=== PATIENT | male | born 1950 | race African-American/Black ===

== ENCOUNTER 2019-12-19 10:17 | Inpatient (IN) | payer MEDICAID, MEDICARE ==
[2019-12-19 15:27] VITALS: BP 145/72
[2019-12-19] MEDS ORDERED: Acetaminophen 500 MG TAB PO PRN (15:32)
[2019-12-19] MEDS ORDERED: Maalox 30 mL Cup PO PRN (15:32)
[2019-12-19] MEDS ORDERED: Magnesium Hydroxide (MOM) 30 mL UDC PO PRN ×2 (15:32→16:48)
[2019-12-19] MEDS: Benztropine 1 MG TAB PO SCH (17:20)
[2019-12-20] MEDS: Benztropine 1 MG TAB PO SCH ×2 (08:38→16:15)
[2019-12-20] MEDS: Multivitamin Tab PO SCH (08:39)
[2019-12-20] MEDS ORDERED: Non-Formulary Item 1 EA (Multivitamin-Min/Iron/Fa/Vit K [Multi-Day Plus Minerals Tablet] 1 PO SCH (09:00)
[2019-12-20 10:06] LABS: CHOLESTEROL 203 mg/dL (<200); LDL CHOLESTEROL 110 mg/dL (0-129); TRIGLYCERIDES 51 mg/dL (30-150)
--- NOTE | 2019-12-20 13:09 | History and Physical ---
History of Present Illness - HPI Chief Complaint: 69 y/o male patient was brought into ER for evaluation due to Increased Agitation and Aggressive behavior. HPI: 69 y/o male patient was admitted to [facility] for evaluation due to Increased Agitation and Aggressive behavior. 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 Patient had an ER assessment and a workup was done. Patient will have a Psych consultation. I will follow, treat and monitor patient. Patient will continue current treatment plan as ordered. 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 GI: Report: No Pertinent Hx Psych: Report: Anxiety, Depression, Psychosis Musculoskeletal: Report: No Pertinent Hx Rheumatologic: Report: No pertinent Hx Renal/: Report: No Pertinent Hx Endocrine: Report: Diabetes Dermatology: Report: No Pertinent Hx - Past Surgical History Past Surgical History: No pertinent Hx Family Medical History - Family Member Niece History Unknown: Yes Ethnicity: Non- Living Status: Unknown Hx Family Cancer: No Hx Family Coronary Artery Disease: No Hx Family Congestive Heart Failure: No Hx Family Hypertension: No Hx Family Stroke: No Hx Family Diabetes: No Hx Family Seizures: No Hx Family Dementia: No Hx Family AIDS: No Hx Family HIV: No Hx Family COPD: No Hx Family Hepatitis: No Hx Family Psychiatric Problems: No Hx Family Tuberculosis: No Social History Smoke: No Alcohol: None Drugs: None Lives: Alone Domestic Violence: Negative Health Maintenance Health Maintenance: Other (Please see chart.) - Medications Home Medications: Home Medication Medication Instructions Recorded Type Amitriptyline HCl [Amitriptyline 25 mg PO BID 12/19/19 History HCl*] Benztropine [Cogentin*] 2 mg PO BID 12/19/19 History Divalproex Sodium [Depakote 750 mg PO HS 12/19/19 History Sprinkle] Lisinopril 5 mg PO DAILY 12/19/19 History Magnesium Hydroxide [Milk of 30 ml PO PRN PRN 12/19/19 History Magnesia] Multivitamin-Min/Iron/FA/Vit K 1 tab PO DAILY 12/19/19 History [Multi-Day Plus Minerals Tablet] OLANZapine [ZyPREXA] 5 mg PO DAILY 12/19/19 History OLANZapine [ZyPREXA] 15 mg PO HS 12/19/19 History OXcarbazepine [Trileptal] 600 mg PO BID 12/19/19 History amLODIPine Besylate [Norvasc*] 10 mg PO DAILY 12/19/19 History Other Medications: Please see medication reconciliation sheet. - Allergies Allergies/Adverse Reactions: Allergies Allergy/AdvReac Type Severity Reaction Status Date / Time No Known Allergies Allergy Unverified 12/19/19 15:26 Review of Systems - Review of Systems Review of Systems: Patient appears very agitated and frustrated. Constitutional: Report: No Significant Eyes: Report: No Significant ENT: Report: No Significant Respiratory: Report: Other (Hx of Copd.) Cardiovascular: Report: Other (Cardiac disorders.) Gastrointestinal: Report: No Significant Genitourinary: Report: No Significant Musculoskeletal: Report: No Significant Skin: Report: No Significant Neurological: Report: Confusion, Seizures, Other (Hx of Psychosis.) Physical Exam - Physical Exam HEENT: Report: Ears Nose Throat within normal limits Neck: Report: Within normal limits Cardiovascular Systems: Report: +s1/s2 noted, Regular, Rate and Rhythm Respiratory: Report: Breath Sounds are within normal limits Abdomen: Report: Non-tender to palpation Back: Report: Inspection of back is within normal limits. Extremities: Report: Non-tender to palpation. Skin: Report: Color of skin is within normal limits Neuro/Psych: Report: Depressed affect, Other (Very agitated and aggressive.) - Lab Results All Lab Results last 24 hours: Laboratory Results - last 24 hr 12/20/19 08:54 Triglycerides 51 Cholesterol 203 H LDL Cholesterol 110 HDL Cholesterol 74 - Assessment Assessment: Psychosis. Anxiety. Depression. History of Diabetes. History of Hypertension. History of Seizure disorder. History of COPD. History of Cardiac disease. - Plan Plan: Psych consult requested. Accu-check daily, Monitor vitals, labs. Continue present mes as directed. Monitor pain, pain management. Continue pulmonary support prn. Monitor Low sodium diet/nutritional support. Safety precaution/Fall precaution. Supportive care. Continue current treatment plan. Cranial Nerve Assessment - CRANIAL NERVES alcohol swab:: Yes Distinguishes movements in peripheral field.:: Yes up, down, sideways:: Yes on forehead, cheeks and chin, chews symmetrically:: Yes FACIAL VII: upper: Frowns Symmetrically:: Yes FACIAL VII: Lower: Smiles Symmetrically:: Yes both ears:: Yes GLOSS-PHARYNGEAL IX: Has gag reflex:: Yes VAGUS X: Can make guttural sounds:: Yes ACCESSORY XI: Shrugs shoulders symmetrically:: Yes tremors or fasciculation's:: Yes - MOTOR spasticity, cogwheel, atrophy, tremor, asterixis, other: Yes - COORDINATION Finger to nose, heel to sanchez, STEFANO, gait, Romberg: Yes - SENSORY signs, Brudzinski, Kernig, neck rigidity:: Yes - REFLEXES Brachioradials Right:: Yes Brachioradials Left:: Yes Biceps Right:: Yes Biceps Left:: Yes Triceps Right:: Yes Triceps Left:: Yes Knee Right:: Yes Knee Left:: Yes Ankle Right:: Yes Ankle Left:: Yes Babinski Right:: Yes Babinski Left:: Yes
--- NOTE | 2019-12-20 17:38 | Psychiatric Evaluation ---
DATE OF SERVICE: 12/20/2019 HISTORY OF PRESENT ILLNESS: A 77-year-old male coming from [facility] retirement, talking nonsense, striking out at staff, aggressive, apparently belligerent there. They could not control his behaviors, aggressive toward women, especially when I talked to him, he is mumbling. Unfortunately, I cannot understand pretty much anything he tells me. I am just able to identify that he knows his name. I don't know if he knows where he is or the year or the day. Difficult to interview. Discussed with the staff. Nursing notes were reviewed. They note that he did not sleep very well, rambling, talking to self, and pacing. PAST PSYCHIATRIC HISTORY: Unclear, concerns for schizophrenia, mood disorder, rule out dementia. FAMILY HISTORY: Unclear. SOCIAL HISTORY: Coming from a retirement facility. MEDICATIONS: Were noted including Zyprexa. MENTAL STATUS EXAMINATION: Stated age, mumbling. Awake, alert, seems disoriented. Unclear SI or HI, unclear psychotic symptoms. Poor insight, poor impulse control. DIAGNOSIS: Likely schizophrenia, mood, unspecified, concerns for dementia. MEDICAL: Please see full H and P. ESTIMATED LENGTH OF STAY: 7-10 days. ASSESSMENT: The patient requiring hospitalization, aggressive, agitated, unruly. TREATMENT PLAN: Includes group as well as milieu therapy, adjustment of medication. CONDITIONS FOR DISCHARGE: Improved mood, improved affect, better control of any agitation. JOB# [id number]
[2019-12-21 06:06] LABS: A1C 5.4 % (4.8-5.6)
[2019-12-21] MEDS: Multivitamin Tab PO SCH (08:33)
[2019-12-21] MEDS: Benztropine 1 MG TAB PO SCH ×2 (08:33→16:07)
--- NOTE | 2019-12-21 10:21 | Internal Medicine Prog Note ---
Internal Medicine Subjective - Subjective Service Date: 12/21/19 Patient seen and examined:: chart reviewed Patient is:: awake, verbal, non-interactive, agitated Patient Complaints of:: other (very agitated and aggressive behavior.) Per staff patient has:: no adverse event, agitated, combative Internal Medicine Objective - Results Recent Labs: Laboratory Last Values Triglycerides 51 mg/dL (30-150) 12/20/19 08:54 Cholesterol 203 mg/dL (<200) H 12/20/19 08:54 LDL Cholesterol 110 mg/dL (0-129) 12/20/19 08:54 HDL Cholesterol 74 mg/dL (>45) 12/20/19 08:54 - Physical Exam Vitals and I&O: Vital Signs Temp 98.9 F 12/20/19 20:00 Pulse 70 12/20/19 20:00 Resp 20 12/20/19 20:00 BP 133/71 12/20/19 20:00 Pulse Ox 97 12/20/19 20:00 Intake & Output 12/20/19 12/21/19 12/21/19 18:59 06:59 18:59 Intake Total 1200 120 Balance 1200 120 Intake: Oral 1200 120 Other: # Voids 3 # Bowel Movements 1 Stool Characteristics Soft Soft Soft Formed Formed Formed Brown Brown Brown Active Medications: Current Medications Acetaminophen (Tylenol) 650 mg PO Q4H PRN PRN Reason: Pain (Mild 1-3) Stop: 02/17/20 15:31 Acetaminophen (Tylenol Extra Strength) 1,000 mg PO Q6H PRN PRN Reason: Pain (Moderate 4-6) Stop: 02/17/20 15:31 Al Hydrox/Mg Hydrox/Simethicone (Maalox) 30 ml PO Q4HR PRN PRN Reason: GI DISTRESS Stop: 02/17/20 15:31 Amitriptyline HCl (Elavil) 25 mg PO BID [facility]; Protocol Stop: 02/17/20 16:59 Last Admin: 12/21/19 08:33 Dose: 25 mg Amlodipine Besylate (Norvasc) 10 mg PO DAILY [facility] Stop: 02/18/20 08:59 Last Admin: 12/21/19 08:35 Dose: Not Given Benztropine Mesylate (Cogentin) 2 mg PO BID [facility] Stop: 02/17/20 16:59 Last Admin: 12/21/19 08:33 Dose: 2 mg Divalproex Sodium (Depakote Sprinkle) 750 mg PO HS [facility]; Protocol Stop: 02/17/20 20:59 Last Admin: 12/20/19 21:17 Dose: 750 mg Ibuprofen (Motrin) 400 mg PO Q4H PRN PRN Reason: Pain (Severe 7-10) Stop: 02/17/20 15:31 Lisinopril (Zestril) 5 mg PO DAILY [facility] Stop: 02/18/20 08:59 Last Admin: 12/21/19 08:35 Dose: Not Given Lorazepam (Ativan) 0.5 mg PO Q4HR PRN; Protocol PRN Reason: Anxiety Stop: 01/18/20 15:31 Magnesium Hydroxide (Milk Of Magnesia) 30 ml PO HS PRN PRN Reason: Constipation Multivitamins/Vitamin C (Theragran) 1 tab PO DAILY [facility] Stop: 02/18/20 08:59 Last Admin: 12/21/19 08:33 Dose: 1 tab Olanzapine (Zyprexa) 5 mg PO DAILY [facility]; Protocol Stop: 02/18/20 13:59 Last Admin: 12/21/19 08:33 Dose: 5 mg Olanzapine (Zyprexa) 15 mg PO HS [facility]; Protocol Stop: 02/17/20 20:59 Last Admin: 12/20/19 21:18 Dose: 15 mg Oxcarbazepine (Trileptal) 600 mg PO BID [facility]; Protocol Stop: 02/17/20 16:59 Last Admin: 12/21/19 08:33 Dose: 600 mg Physical Exam: Patient continues to be very irritable, easily frustrated, will monitor closely. General: other (Dis-oriented and in agitated mood.) HEENT: NC/AT, PERRLA Neck: Supple, No JVD Lungs: CTAB Cardiovascular: RRR, Normal S1 Abdomen: soft, non-tender, non-distended Extremities: clear Neurological: no change, disorganized Internal Medicine Assmt/Plan - Assessment Assessment: Schizophrenia, R/O Dementia. Psychosis. Anxiety. Depression. History of Diabetes. History of Hypertension. History of Seizure disorder. History of COPD. History of Cardiac disease. - Plan Plan: Continuation of care. Accu-check daily, Monitor vitals, labs. Continue present mes as directed. Monitor pain, pain management. Continue pulmonary support prn. Monitor Low sodium diet/nutritional support. Safety precaution/Fall precaution. Supportive care. Continue present care management. Nutritional Asmnt/Malnutr-PDOC - Dietary Evaluation Malnutrition Findings (Please click <Entered> for more info): see chart.
--- NOTE | 2019-12-21 16:33 | Progress Notes ---
DATE: 12/21/2019 SUBJECTIVE: A 69-year-old male remains confused, mumbles, really hard to understand what he is saying. Per staff, AO x 1. On my exam, AO x 1, not really answering any questions here, but due to combative behaviors, still wandering, confused, gets agitated, preoccupied with his own thoughts, concerns about the safety of those around him. Concerns he may act out upon his impulses. Still rambles. Medications were reviewed. Labs reviewed. Vitals were reviewed. ASSESSMENT: A 69-year-old male who remains symptomatic, concerns he may strike out at others. PLAN: We will continue to monitor. We will make appropriate medication adjustments. JOB# [id number]
[2019-12-22] MEDS: Benztropine 1 MG TAB PO SCH ×2 (08:54→17:31)
[2019-12-22] MEDS: Multivitamin Tab PO SCH (08:55)
--- NOTE | 2019-12-22 13:01 | Internal Medicine Prog Note ---
Internal Medicine Subjective - Subjective Service Date: 12/22/19 Patient seen and examined:: with staff, chart reviewed Patient is:: awake, verbal, non-interactive, agitated Patient Complaints of:: other (very agitated and aggressive behavior.) Per staff patient has:: no adverse event, no episodes of fall, agitated, combative Internal Medicine Objective - Results Recent Labs: Laboratory Last Values Triglycerides 51 mg/dL (30-150) 12/20/19 08:54 Cholesterol 203 mg/dL (<200) H 12/20/19 08:54 LDL Cholesterol 110 mg/dL (0-129) 12/20/19 08:54 HDL Cholesterol 74 mg/dL (>45) 12/20/19 08:54 - Physical Exam Vitals and I&O: Vital Signs Temp 98.2 F 12/22/19 05:39 Pulse 82 12/22/19 05:39 Resp 16 12/22/19 08:00 BP 114/68 12/22/19 05:39 Pulse Ox 96 12/22/19 05:39 Intake & Output 12/21/19 12/22/19 12/22/19 18:59 06:59 18:59 Intake Total 1200 240 Balance 1200 240 Intake: Oral 1200 240 Other: # Voids 4 2 # Bowel Movements 1 Stool Characteristics Soft Soft Soft Formed Formed Formed Brown Brown Brown Active Medications: Current Medications Acetaminophen (Tylenol) 650 mg PO Q4H PRN PRN Reason: Pain (Mild 1-3) Stop: 02/17/20 15:31 Acetaminophen (Tylenol Extra Strength) 1,000 mg PO Q6H PRN PRN Reason: Pain (Moderate 4-6) Stop: 02/17/20 15:31 Al Hydrox/Mg Hydrox/Simethicone (Maalox) 30 ml PO Q4HR PRN PRN Reason: GI DISTRESS Stop: 02/17/20 15:31 Amitriptyline HCl (Elavil) 25 mg PO BID [facility]; Protocol Stop: 02/17/20 16:59 Last Admin: 12/22/19 08:55 Dose: 25 mg Amlodipine Besylate (Norvasc) 10 mg PO DAILY [facility] Stop: 02/18/20 08:59 Last Admin: 12/22/19 10:03 Dose: Not Given Benztropine Mesylate (Cogentin) 2 mg PO BID [facility] Stop: 02/17/20 16:59 Last Admin: 12/22/19 08:54 Dose: 2 mg Divalproex Sodium (Depakote Sprinkle) 750 mg PO HS [facility]; Protocol Stop: 02/17/20 20:59 Last Admin: 12/21/19 20:44 Dose: 750 mg Ibuprofen (Motrin) 400 mg PO Q4H PRN PRN Reason: Pain (Severe 7-10) Stop: 02/17/20 15:31 Lisinopril (Zestril) 5 mg PO DAILY [facility] Stop: 02/18/20 08:59 Last Admin: 12/22/19 10:03 Dose: Not Given Lorazepam (Ativan) 0.5 mg PO Q4HR PRN; Protocol PRN Reason: Anxiety Stop: 01/18/20 15:31 Magnesium Hydroxide (Milk Of Magnesia) 30 ml PO HS PRN PRN Reason: Constipation Multivitamins/Vitamin C (Theragran) 1 tab PO DAILY [facility] Stop: 02/18/20 08:59 Last Admin: 12/22/19 08:55 Dose: 1 tab Olanzapine (Zyprexa) 5 mg PO DAILY [facility]; Protocol Stop: 02/18/20 13:59 Last Admin: 12/22/19 08:54 Dose: 5 mg Olanzapine (Zyprexa) 15 mg PO HS [facility]; Protocol Stop: 02/17/20 20:59 Last Admin: 12/21/19 20:44 Dose: 15 mg Oxcarbazepine (Trileptal) 600 mg PO BID [facility]; Protocol Stop: 02/17/20 16:59 Last Admin: 12/22/19 08:55 Dose: 600 mg Physical Exam: Patient continues to be easily frustrated and is withdrawn, will be monitored closely. General: other (Dis-oriented and in agitated mood.) HEENT: NC/AT, PERRLA Neck: Supple, No JVD Lungs: CTAB Cardiovascular: RRR, Normal S1 Abdomen: soft, non-tender, non-distended Extremities: clear Neurological: no change, disorganized Internal Medicine Assmt/Plan - Assessment Assessment: Schizophrenia, R/O Dementia. Psychosis. Anxiety. Depression. History of Diabetes. History of Hypertension. History of Seizure disorder. History of COPD. History of Cardiac disease. - Plan Plan: Continuation of care. Accu-check daily, Monitor vitals, labs. Continue present mes as directed. Monitor pain, pain management. Continue pulmonary support prn. Monitor Low sodium diet/nutritional support. Safety precaution/Fall precaution. Supportive care. Continue present care management. Nutritional Asmnt/Malnutr-PDOC - Dietary Evaluation Malnutrition Findings (Please click <Entered> for more info): see chart.
--- NOTE | 2019-12-22 19:52 | Progress Notes ---
DATE: 12/22/2019 Case was discussed with staff of the patient, reviewed records. Covering for Dr. Lo. This is a 69-year-old male who was admitted on 12/19/2019 from [facility]. He was making nonsense, striking out at staff, aggressive, belligerent, could not control his behavior, especially towards women. The patient is mumbling, unable to participate in meaningful conversation. I tried talk to him, he was still mumbling, unable to make safe plan for self-care, refusing care, refusing to sign voluntary, so I had to extend the hold because of aggressive behavior, unable to make safe plan for self-care, unpredictable, impulsive. He is on Depakote and Cogentin as well as olanzapine. No side effects with the medication, no sedation, no nausea, no extrapyramidal symptoms. We will continue outpatient group therapy, milieu therapy, adjust medication as needed. JOB# [id number]
--- NOTE | 2019-12-23 07:54 | Internal Medicine Prog Note ---
Internal Medicine Subjective - Subjective Service Date: 12/23/19 Patient seen and examined:: without staff, chart reviewed Patient is:: awake, verbal, non-interactive, agitated Patient Complaints of:: other (very agitated and aggressive behavior.) Per staff patient has:: no adverse event, no episodes of fall, agitated, combative Internal Medicine Objective - Results Recent Labs: Laboratory Last Values Triglycerides 51 mg/dL (30-150) 12/20/19 08:54 Cholesterol 203 mg/dL (<200) H 12/20/19 08:54 LDL Cholesterol 110 mg/dL (0-129) 12/20/19 08:54 HDL Cholesterol 74 mg/dL (>45) 12/20/19 08:54 - Physical Exam Vitals and I&O: Vital Signs Temp 98.4 F 12/22/19 14:00 Pulse 81 12/22/19 14:00 Resp 19 12/22/19 14:00 BP 101/55 12/22/19 14:00 Pulse Ox 97 12/22/19 14:00 Intake & Output 12/22/19 12/23/19 12/23/19 18:59 06:59 18:59 Intake Total 1300 Balance 1300 Intake: Oral 1300 Other: # Voids 3 # Bowel Movements 0 Stool Characteristics Soft Soft Formed Formed Brown Brown Active Medications: Current Medications Acetaminophen (Tylenol) 650 mg PO Q4H PRN PRN Reason: Pain (Mild 1-3) Stop: 02/17/20 15:31 Acetaminophen (Tylenol Extra Strength) 1,000 mg PO Q6H PRN PRN Reason: Pain (Moderate 4-6) Stop: 02/17/20 15:31 Al Hydrox/Mg Hydrox/Simethicone (Maalox) 30 ml PO Q4HR PRN PRN Reason: GI DISTRESS Stop: 02/17/20 15:31 Amitriptyline HCl (Elavil) 25 mg PO BID [facility]; Protocol Stop: 02/17/20 16:59 Last Admin: 12/22/19 17:31 Dose: 25 mg Amlodipine Besylate (Norvasc) 10 mg PO DAILY [facility] Stop: 02/18/20 08:59 Last Admin: 12/22/19 10:03 Dose: Not Given Benztropine Mesylate (Cogentin) 2 mg PO BID [facility] Stop: 02/17/20 16:59 Last Admin: 12/22/19 17:31 Dose: 2 mg Divalproex Sodium (Depakote Sprinkle) 750 mg PO HS [facility]; Protocol Stop: 02/17/20 20:59 Last Admin: 12/22/19 20:40 Dose: 750 mg Ibuprofen (Motrin) 400 mg PO Q4H PRN PRN Reason: Pain (Severe 7-10) Stop: 02/17/20 15:31 Lisinopril (Zestril) 5 mg PO DAILY [facility] Stop: 02/18/20 08:59 Last Admin: 12/22/19 10:03 Dose: Not Given Lorazepam (Ativan) 0.5 mg PO Q4HR PRN; Protocol PRN Reason: Anxiety Stop: 01/18/20 15:31 Magnesium Hydroxide (Milk Of Magnesia) 30 ml PO HS PRN PRN Reason: Constipation Multivitamins/Vitamin C (Theragran) 1 tab PO DAILY [facility] Stop: 02/18/20 08:59 Last Admin: 12/22/19 08:55 Dose: 1 tab Olanzapine (Zyprexa) 5 mg PO DAILY [facility]; Protocol Stop: 02/18/20 13:59 Last Admin: 12/22/19 08:54 Dose: 5 mg Olanzapine (Zyprexa) 15 mg PO HS [facility]; Protocol Stop: 02/17/20 20:59 Last Admin: 12/22/19 20:40 Dose: 15 mg Oxcarbazepine (Trileptal) 600 mg PO BID [facility]; Protocol Stop: 02/17/20 16:59 Last Admin: 12/22/19 17:31 Dose: 600 mg General: alert, other (Dis-oriented and in agitated mood.) HEENT: NC/AT, PERRLA Neck: Supple, No JVD Lungs: CTAB Cardiovascular: RRR, Normal S1 Abdomen: soft, non-tender, non-distended Extremities: clear Neurological: no change, disorganized Internal Medicine Assmt/Plan - Assessment Assessment: schizophrenia hypertension chronic obstructive pulmonary disease history of seizure - Plan Plan: follow up with psychiatrist monitor behavior fall precaution
[2019-12-23] MEDS: Benztropine 1 MG TAB PO SCH ×2 (09:18→17:25)
[2019-12-23] MEDS: Multivitamin Tab PO SCH (09:19)
--- NOTE | 2019-12-23 12:18 | Internal Medicine Prog Note ---
Internal Medicine Subjective - Subjective Service Date: 12/23/19 Patient seen and examined:: with staff, chart reviewed Patient is:: awake, verbal, non-interactive, agitated Patient Complaints of:: other (very agitated and aggressive behavior.) Per staff patient has:: no adverse event, no episodes of fall, agitated, combative Internal Medicine Objective - Results Recent Labs: Laboratory Last Values Triglycerides 51 mg/dL (30-150) 12/20/19 08:54 Cholesterol 203 mg/dL (<200) H 12/20/19 08:54 LDL Cholesterol 110 mg/dL (0-129) 12/20/19 08:54 HDL Cholesterol 74 mg/dL (>45) 12/20/19 08:54 - Physical Exam Vitals and I&O: Vital Signs Temp 98.4 F 12/22/19 14:00 Pulse 81 12/22/19 14:00 Resp 16 12/23/19 08:00 BP 101/55 12/22/19 14:00 Pulse Ox 97 12/22/19 14:00 Intake & Output 12/22/19 12/23/19 12/23/19 18:59 06:59 18:59 Intake Total 1300 Balance 1300 Intake: Oral 1300 Other: # Voids 3 # Bowel Movements 0 Stool Characteristics Soft Soft Soft Formed Formed Formed Brown Brown Brown Active Medications: Current Medications Acetaminophen (Tylenol) 650 mg PO Q4H PRN PRN Reason: Pain (Mild 1-3) Stop: 02/17/20 15:31 Acetaminophen (Tylenol Extra Strength) 1,000 mg PO Q6H PRN PRN Reason: Pain (Moderate 4-6) Stop: 02/17/20 15:31 Al Hydrox/Mg Hydrox/Simethicone (Maalox) 30 ml PO Q4HR PRN PRN Reason: GI DISTRESS Stop: 02/17/20 15:31 Amitriptyline HCl (Elavil) 25 mg PO BID [facility]; Protocol Stop: 02/17/20 16:59 Last Admin: 12/23/19 09:19 Dose: 25 mg Amlodipine Besylate (Norvasc) 10 mg PO DAILY [facility] Stop: 02/18/20 08:59 Last Admin: 12/23/19 09:19 Dose: Not Given Benztropine Mesylate (Cogentin) 2 mg PO BID [facility] Stop: 02/17/20 16:59 Last Admin: 12/23/19 09:18 Dose: 2 mg Divalproex Sodium (Depakote Sprinkle) 750 mg PO HS [facility]; Protocol Stop: 02/17/20 20:59 Last Admin: 12/22/19 20:40 Dose: 750 mg Ibuprofen (Motrin) 400 mg PO Q4H PRN PRN Reason: Pain (Severe 7-10) Stop: 02/17/20 15:31 Lisinopril (Zestril) 5 mg PO DAILY [facility] Stop: 02/18/20 08:59 Last Admin: 12/23/19 09:19 Dose: Not Given Lorazepam (Ativan) 0.5 mg PO Q4HR PRN; Protocol PRN Reason: Anxiety Stop: 01/18/20 15:31 Magnesium Hydroxide (Milk Of Magnesia) 30 ml PO HS PRN PRN Reason: Constipation Multivitamins/Vitamin C (Theragran) 1 tab PO DAILY [facility] Stop: 02/18/20 08:59 Last Admin: 12/23/19 09:19 Dose: 1 tab Olanzapine (Zyprexa) 5 mg PO DAILY [facility]; Protocol Stop: 02/18/20 13:59 Last Admin: 12/23/19 09:18 Dose: 5 mg Olanzapine (Zyprexa) 15 mg PO HS [facility]; Protocol Stop: 02/17/20 20:59 Last Admin: 12/22/19 20:40 Dose: 15 mg Oxcarbazepine (Trileptal) 600 mg PO BID [facility]; Protocol Stop: 02/17/20 16:59 Last Admin: 12/23/19 09:18 Dose: 600 mg Physical Exam: Patient continues to be combative, agitated and irritable, will continue to be monitored. General: alert, other (Dis-oriented and in agitated mood.) HEENT: NC/AT, PERRLA Neck: Supple, No JVD Lungs: CTAB Cardiovascular: RRR, Normal S1 Abdomen: soft, non-tender, non-distended Extremities: clear Neurological: no change, disorganized Internal Medicine Assmt/Plan - Assessment Assessment: Psychosis. Anxiety. Depression. History of Diabetes. History of Hypertension. History of Seizure disorder. History of COPD. History of Cardiac disease. - Plan Plan: Accu-check daily, Monitor vitals, labs. Continue present mes as directed. Monitor pain, pain management. Continue pulmonary support prn. Monitor Low sodium diet/nutritional support. Safety precaution/Fall precaution. Supportive care. Continue present care management. Nutritional Asmnt/Malnutr-PDOC - Dietary Evaluation Malnutrition Findings (Please click <Entered> for more info): Nutritional Asmnt/Malnutrition Start: 12/23/19 11: 33 Text: Status: Active Freq: Protocol: Document 12/23/19 11:49 DONNACAROLINELEIF (Rec: 12/23/19 12:08 MMULLEIF VESNA- [id number]) Nutritional Asmnt/Malnutrition Patient General Information Nutritional Screening Moderate Risk Diagnosis Psychosis Pertinent Medical Hx/Surgical Hx Cardiac disease, diabetes, hypertension, COPD< seizure disorder, depression, anxiety Subjective Information Dietary currently providing average 1900 kcal, 80 gm protein per day; intake ~100% of meals. Per nursing notes, patient selectively mute. Current Diet Order/ Nutrition Support Cardiac Patient / S.O Not Indicated Pertinent Medications Maalox, MOM, Theragran Pertinent Labs (12/19) Cholesterol 203 Nutritional Hx/Data Height 1.7 m Height (Calculated Centimeters) 170.2 Current Weight (lbs) 68.039 kg Weight (Calculated Kilograms) 68.0 Weight (Calculated Grams) 07441.9 [place] Body Weight 148 % [place] Body Weight 101 Body Mass Index (BMI) 23.5 Recent Weight Change No Weight Status Approriate GI Symptoms GI Symptoms None Last BM 12/20 x 1 Difficult in: None Food Allergies No Cultural/Ethnic/Gnosticism Belief none indicated Usual diet at home unknown Skin Integrity/Comment: Zac 19, dryness Current %PO Good (75-100%) Estimated Nutritional Goals BEE in Kcals: Using Current wt Calories/Kcals/Kg 25-30 kcal/kg using CBW68.1kg Kcals Calculated ~7935-5138 kcal/day Protein: Using Current wt Protein g/kgm/kg Protein Calculated ~70 gm/day Fluid: ml ~9211-8924 ml/day 1 ml/kcal Nutritional Problem No current Nutrition Prob Problem No nutrition diagnosis at this time Intervention/Recommendation Comments 1. Continue cardiac diet as tolerated by patient ( Cholesterol 203) Expected Outcomes/Goals Expected Outcomes/Goals Oral intake >75% of meals, weight stable, nutrition related labs WNL F/U LR 12/29-
--- NOTE | 2019-12-23 21:32 | Progress Notes ---
DATE: 12/23/[address] oL. Brought in here for striking out at staff and aggressive behavior. CURRENT MEDICATIONS: Benztropine 2 b.i.d., Depakote 750 at bedtime, Ativan as needed, olanzapine 15 at nighttime, 5 in the morning and Trileptal 600 b.i.d. Today on [id number] evaluation, refuses to be interviewed, starts cursing, belligerence, disorganized. ASSESSMENT AND PLAN: Schizophrenic who continues to present psychotic, irritable and agitated upon approach. We will continue with current medications to continue to reach steady state. JOB# [id number]
[2019-12-24] MEDS: Benztropine 1 MG TAB PO SCH ×2 (08:50→17:06)
[2019-12-24] MEDS: Multivitamin Tab PO SCH (08:51)
--- NOTE | 2019-12-24 14:12 | Progress Notes ---
DATE: 12/24/2019 SUBJECTIVE: Today on [id number] evaluation, the patient is noted to be standing on the floor, talking to the floor, when interrupted became very agitated. MENTAL STATUS EXAMINATION: Internally preoccupied, despondent. ASSESSMENT AND PLAN: Schizophrenia, who continues to respond ____ and becomes agitated upon approach. He is currently on ____. JOB# [id number]
--- NOTE | 2019-12-24 20:49 | Internal Medicine Prog Note ---
Internal Medicine Subjective - Subjective Patient is:: awake, verbal, non-interactive, in wheelchair, agitated Patient Complaints of:: other (very agitated and aggressive behavior.) Per staff patient has:: no adverse event, no episodes of fall, agitated, combative Internal Medicine Objective - Results Recent Labs: Laboratory Last Values Triglycerides 51 mg/dL (30-150) 12/20/19 08:54 Cholesterol 203 mg/dL (<200) H 12/20/19 08:54 LDL Cholesterol 110 mg/dL (0-129) 12/20/19 08:54 HDL Cholesterol 74 mg/dL (>45) 12/20/19 08:54 - Physical Exam Vitals and I&O: Vital Signs Temp 97.9 F 12/24/19 20:00 Pulse 65 12/24/19 20:00 Resp 18 12/24/19 20:00 BP 125/62 12/24/19 20:00 Pulse Ox 97 12/24/19 20:00 Intake & Output 12/24/19 12/24/19 12/25/19 06:59 18:59 06:59 Intake Total 120 800 Balance 120 800 Intake: Oral 120 800 Other: # Voids 1 3 # Bowel Movements 0 0 Stool Characteristics Soft Formed Brown Active Medications: Current Medications Acetaminophen (Tylenol) 650 mg PO Q4H PRN PRN Reason: Pain (Mild 1-3) Stop: 02/17/20 15:31 Acetaminophen (Tylenol Extra Strength) 1,000 mg PO Q6H PRN PRN Reason: Pain (Moderate 4-6) Stop: 02/17/20 15:31 Al Hydrox/Mg Hydrox/Simethicone (Maalox) 30 ml PO Q4HR PRN PRN Reason: GI DISTRESS Stop: 02/17/20 15:31 Amitriptyline HCl (Elavil) 25 mg PO BID [facility]; Protocol Stop: 02/17/20 16:59 Last Admin: 12/24/19 17:06 Dose: 25 mg Amlodipine Besylate (Norvasc) 10 mg PO DAILY [facility] Stop: 02/18/20 08:59 Last Admin: 12/24/19 08:50 Dose: Not Given Benztropine Mesylate (Cogentin) 2 mg PO BID [facility] Stop: 02/17/20 16:59 Last Admin: 12/24/19 17:06 Dose: 2 mg Divalproex Sodium (Depakote Sprinkle) 750 mg PO HS [facility]; Protocol Stop: 02/17/20 20:59 Last Admin: 12/24/19 20:45 Dose: 750 mg Ibuprofen (Motrin) 400 mg PO Q4H PRN PRN Reason: Pain (Severe 7-10) Stop: 02/17/20 15:31 Lisinopril (Zestril) 5 mg PO DAILY [facility] Stop: 02/18/20 08:59 Last Admin: 12/24/19 08:51 Dose: Not Given Lorazepam (Ativan) 0.5 mg PO Q4HR PRN; Protocol PRN Reason: Anxiety Stop: 01/18/20 15:31 Last Admin: 12/24/19 09:42 Dose: 0.5 mg Magnesium Hydroxide (Milk Of Magnesia) 30 ml PO HS PRN PRN Reason: Constipation Multivitamins/Vitamin C (Theragran) 1 tab PO DAILY [facility] Stop: 02/18/20 08:59 Last Admin: 12/24/19 08:51 Dose: 1 tab Olanzapine (Zyprexa) 5 mg PO DAILY [facility]; Protocol Stop: 02/18/20 13:59 Last Admin: 12/24/19 08:51 Dose: 5 mg Olanzapine (Zyprexa) 15 mg PO HS [facility]; Protocol Stop: 02/17/20 20:59 Last Admin: 12/24/19 20:45 Dose: 15 mg Oxcarbazepine (Trileptal) 600 mg PO BID [facility]; Protocol Stop: 02/17/20 16:59 Last Admin: 12/24/19 17:06 Dose: 600 mg General: alert, other (Dis-oriented and in agitated mood.) HEENT: NC/AT, PERRLA Neck: Supple, No JVD Lungs: CTAB Cardiovascular: RRR, Normal S1 Abdomen: soft, non-tender, non-distended Extremities: clear Neurological: no change, disorganized Internal Medicine Assmt/Plan - Assessment Assessment: Psychosis. Anxiety. Depression. History of Diabetes. History of Hypertension. History of Seizure disorder. History of COPD. History of Cardiac disease. - Plan Plan: Accu-check daily, Monitor vitals, labs. Continue present mes as directed. Monitor pain, pain management. Continue pulmonary support prn. Monitor Low sodium diet/nutritional support. Safety precaution/Fall precaution. Supportive care. Continue present care management Continue with current management per psych Interdisciplinary team Nutritional Asmnt/Malnutr-PDOC - Dietary Evaluation Malnutrition Findings (Please click <Entered> for more info): Nutritional Asmnt/Malnutrition Start: 12/23/19 11: 33 Text: Status: Complete Freq: Protocol: Document 12/23/19 11:49 EARNESTLEIF (Rec: 12/23/19 12:08 MMULLEIF VESNA- [id number]) Nutritional Asmnt/Malnutrition Patient General Information Nutritional Screening Moderate Risk Diagnosis Psychosis Pertinent Medical Hx/Surgical Hx Cardiac disease, diabetes, hypertension, COPD< seizure disorder, depression, anxiety Subjective Information Dietary currently providing average 1900 kcal, 80 gm protein per day; intake ~100% of meals. Per nursing notes, patient selectively mute. Patient asleep at time of visit. Current Diet Order/ Nutrition Support Cardiac Patient / S.O Not Indicated Pertinent Medications Maalox, MOM, Theragran Pertinent Labs (12/19) Cholesterol 203 Nutritional Hx/Data Height 5 ft 7 in Height (Calculated Centimeters) 170.2 Current Weight (lbs) 150 lb Weight (Calculated Kilograms) 68.0 Weight (Calculated Grams) 30197.9 [place] Body Weight 148 % [place] Body Weight 101 Body Mass Index (BMI) 23.5 Recent Weight Change No Weight Status Approriate GI Symptoms GI Symptoms None Last BM 12/20 x 1 Difficult in: None Food Allergies No Cultural/Ethnic/Congregation Belief none indicated Usual diet at home unknown Skin Integrity/Comment: Zac 19, dryness Current %PO Good (75-100%) Estimated Nutritional Goals BEE in Kcals: Using Current wt Calories/Kcals/Kg 25-30 kcal/kg using CBW68.1kg Kcals Calculated ~8384-7461 kcal/day Protein: Using Current wt Protein g/kgm/kg Protein Calculated ~70 gm/day Fluid: ml ~0674-2758 ml/day 1 ml/kcal Nutritional Problem No current Nutrition Prob Problem No nutrition diagnosis at this time Intervention/Recommendation Comments 1. Continue cardiac diet as tolerated by patient ( Cholesterol 203) Expected Outcomes/Goals Expected Outcomes/Goals Oral intake >75% of meals, weight stable, nutrition related labs WNL F/U LR 12/29-
[2019-12-25] MEDS: Multivitamin Tab PO SCH (08:45)
[2019-12-25] MEDS: Benztropine 1 MG TAB PO SCH ×2 (08:45→16:35)
--- NOTE | 2019-12-25 13:35 | Internal Medicine Prog Note ---
Internal Medicine Subjective - Subjective Service Date: 12/25/19 Patient seen and examined:: with staff, chart reviewed Patient is:: awake, verbal, non-interactive, in wheelchair, agitated Patient Complaints of:: other (very agitated and aggressive behavior.) Per staff patient has:: no adverse event, no episodes of fall, agitated, combative Internal Medicine Objective - Results Recent Labs: Laboratory Last Values Triglycerides 51 mg/dL (30-150) 12/20/19 08:54 Cholesterol 203 mg/dL (<200) H 12/20/19 08:54 LDL Cholesterol 110 mg/dL (0-129) 12/20/19 08:54 HDL Cholesterol 74 mg/dL (>45) 12/20/19 08:54 - Physical Exam Vitals and I&O: Vital Signs Temp 96.9 F 12/25/19 05:53 Pulse 68 12/25/19 08:45 Resp 18 12/25/19 08:00 BP 169/80 12/25/19 08:45 Pulse Ox 98 12/25/19 05:53 Intake & Output 12/24/19 12/25/19 12/25/19 18:59 06:59 18:59 Intake Total 800 60 Balance 800 60 Intake: Oral 800 60 Other: # Voids 3 1 # Bowel Movements 0 0 Stool Characteristics Soft Formed Brown Active Medications: Current Medications Acetaminophen (Tylenol) 650 mg PO Q4H PRN PRN Reason: Pain (Mild 1-3) Stop: 02/17/20 15:31 Acetaminophen (Tylenol Extra Strength) 1,000 mg PO Q6H PRN PRN Reason: Pain (Moderate 4-6) Stop: 02/17/20 15:31 Al Hydrox/Mg Hydrox/Simethicone (Maalox) 30 ml PO Q4HR PRN PRN Reason: GI DISTRESS Stop: 02/17/20 15:31 Amitriptyline HCl (Elavil) 25 mg PO BID [facility]; Protocol Stop: 02/17/20 16:59 Last Admin: 12/25/19 08:45 Dose: 25 mg Amlodipine Besylate (Norvasc) 10 mg PO DAILY [facility] Stop: 02/18/20 08:59 Last Admin: 12/25/19 08:45 Dose: 10 mg Benztropine Mesylate (Cogentin) 2 mg PO BID [facility] Stop: 02/17/20 16:59 Last Admin: 12/25/19 08:45 Dose: 2 mg Divalproex Sodium (Depakote Sprinkle) 750 mg PO HS [facility]; Protocol Stop: 02/17/20 20:59 Last Admin: 12/24/19 20:45 Dose: 750 mg Ibuprofen (Motrin) 400 mg PO Q4H PRN PRN Reason: Pain (Severe 7-10) Stop: 02/17/20 15:31 Lisinopril (Zestril) 5 mg PO DAILY [facility] Stop: 02/18/20 08:59 Last Admin: 12/25/19 08:45 Dose: 5 mg Lorazepam (Ativan) 0.5 mg PO Q4HR PRN; Protocol PRN Reason: Anxiety Stop: 01/18/20 15:31 Last Admin: 12/25/19 07:00 Dose: 0.5 mg Magnesium Hydroxide (Milk Of Magnesia) 30 ml PO HS PRN PRN Reason: Constipation Multivitamins/Vitamin C (Theragran) 1 tab PO DAILY [facility] Stop: 02/18/20 08:59 Last Admin: 12/25/19 08:45 Dose: 1 tab Olanzapine (Zyprexa) 5 mg PO DAILY [facility]; Protocol Stop: 02/18/20 13:59 Last Admin: 12/25/19 08:45 Dose: 5 mg Olanzapine (Zyprexa) 20 mg PO HS [facility]; Protocol Stop: 02/23/20 20:59 Oxcarbazepine (Trileptal) 600 mg PO BID [facility]; Protocol Stop: 02/17/20 16:59 Last Admin: 12/25/19 08:45 Dose: 600 mg Physical Exam: Patient continues to be irritable, has mood swings, will continue to be monitored. General: alert, other (Dis-oriented and in agitated mood.) HEENT: NC/AT, PERRLA Neck: Supple, No JVD Lungs: CTAB Cardiovascular: RRR, Normal S1 Abdomen: soft, non-tender, non-distended Extremities: clear Neurological: no change, disorganized Internal Medicine Assmt/Plan - Assessment Assessment: Psychosis. Anxiety. Depression. History of Diabetes. History of Hypertension. History of Seizure disorder. History of COPD. History of Cardiac disease. - Plan Plan: Accu-check daily, Monitor vitals, labs. Continue present meds as directed. Monitor pain, pain management. Continue pulmonary support prn. Monitor Low sodium diet/nutritional support. Safety precaution/Fall precaution. Supportive care. Continue present care management. Nutritional Asmnt/Malnutr-PDOC - Dietary Evaluation Malnutrition Findings (Please click <Entered> for more info): Nutritional Asmnt/Malnutrition Start: 12/23/19 11: 33 Text: Status: Complete Freq: Protocol: Document 12/23/19 11:49 EARNESTCarlin (Rec: 12/23/19 12:08 MMULLEIF VESNA- [id number]) Nutritional Asmnt/Malnutrition Patient General Information Nutritional Screening Moderate Risk Diagnosis Psychosis Pertinent Medical Hx/Surgical Hx Cardiac disease, diabetes, hypertension, COPD< seizure disorder, depression, anxiety Subjective Information Dietary currently providing average 1900 kcal, 80 gm protein per day; intake ~100% of meals. Per nursing notes, patient selectively mute. Patient asleep at time of visit. Current Diet Order/ Nutrition Support Cardiac Patient / S.O Not Indicated Pertinent Medications Maalox, MOM, Theragran Pertinent Labs (12/19) Cholesterol 203 Nutritional Hx/Data Height 1.7 m Height (Calculated Centimeters) 170.2 Current Weight (lbs) 68.039 kg Weight (Calculated Kilograms) 68.0 Weight (Calculated Grams) 66322.9 [place] Body Weight 148 % [place] Body Weight 101 Body Mass Index (BMI) 23.5 Recent Weight Change No Weight Status Approriate GI Symptoms GI Symptoms None Last BM 12/20 x 1 Difficult in: None Food Allergies No Cultural/Ethnic/Alevism Belief none indicated Usual diet at home unknown Skin Integrity/Comment: Zac 19, dryness Current %PO Good (75-100%) Estimated Nutritional Goals BEE in Kcals: Using Current wt Calories/Kcals/Kg 25-30 kcal/kg using CBW68.1kg Kcals Calculated ~6347-3084 kcal/day Protein: Using Current wt Protein g/kgm/kg Protein Calculated ~70 gm/day Fluid: ml ~3225-3421 ml/day 1 ml/kcal Nutritional Problem No current Nutrition Prob Problem No nutrition diagnosis at this time Intervention/Recommendation Comments 1. Continue cardiac diet as tolerated by patient ( Cholesterol 203) Expected Outcomes/Goals Expected Outcomes/Goals Oral intake >75% of meals, weight stable, nutrition related labs WNL F/U LR 12/29-
--- NOTE | 2019-12-25 15:37 | Progress Notes ---
DATE: 12/25/[address] Lo. Case was discussed with staff of the patient, reviewed records. The patient continues to be rambling, continues to have poor insight, continues to be internally preoccupied, unable to make safe plan for self-care. No side effects with the medication, no sedation, no nausea, no extrapyramidal symptoms. He is on olanzapine 5 mg in the morning and 50 mg at bedtime. I will be increasing the dose of olanzapine at bedtime to 20 mg at bedtime to improve his psychotic symptoms. We will continue outpatient group therapy, milieu therapy, adjust medication as needed. JOB# [id number]
[2019-12-26] MEDS: Benztropine 1 MG TAB PO SCH ×2 (08:40→16:09)
[2019-12-26] MEDS: Multivitamin Tab PO SCH (08:41)
--- NOTE | 2019-12-26 12:05 | Internal Medicine Prog Note ---
Internal Medicine Subjective - Subjective Service Date: 12/26/19 Patient seen and examined:: chart reviewed Patient is:: awake, verbal, in wheelchair, agitated Patient Complaints of:: other (very agitated and aggressive behavior.) Per staff patient has:: no adverse event, no episodes of fall, agitated, combative Internal Medicine Objective - Results Recent Labs: Laboratory Last Values Triglycerides 51 mg/dL (30-150) 12/20/19 08:54 Cholesterol 203 mg/dL (<200) H 12/20/19 08:54 LDL Cholesterol 110 mg/dL (0-129) 12/20/19 08:54 HDL Cholesterol 74 mg/dL (>45) 12/20/19 08:54 - Physical Exam Vitals and I&O: Vital Signs Temp 97.1 F 12/26/19 06:36 Pulse 68 12/26/19 08:42 Resp 18 12/26/19 06:36 BP 112/60 12/26/19 08:42 Pulse Ox 99 12/26/19 06:36 Intake & Output 12/25/19 12/26/19 12/26/19 18:59 06:59 18:59 Intake Total 1000 500 Balance 1000 500 Intake: Oral 1000 500 Other: # Voids 4 3 # Bowel Movements 1 1 Stool Characteristics Soft Soft Active Medications: Current Medications Acetaminophen (Tylenol) 650 mg PO Q4H PRN PRN Reason: Pain (Mild 1-3) Stop: 02/17/20 15:31 Acetaminophen (Tylenol Extra Strength) 1,000 mg PO Q6H PRN PRN Reason: Pain (Moderate 4-6) Stop: 02/17/20 15:31 Al Hydrox/Mg Hydrox/Simethicone (Maalox) 30 ml PO Q4HR PRN PRN Reason: GI DISTRESS Stop: 02/17/20 15:31 Amitriptyline HCl (Elavil) 25 mg PO BID [facility]; Protocol Stop: 02/17/20 16:59 Last Admin: 12/26/19 08:41 Dose: 25 mg Amlodipine Besylate (Norvasc) 10 mg PO DAILY [facility] Stop: 02/18/20 08:59 Last Admin: 12/26/19 08:42 Dose: 10 mg Benztropine Mesylate (Cogentin) 2 mg PO BID [facility] Stop: 02/17/20 16:59 Last Admin: 12/26/19 08:40 Dose: 2 mg Divalproex Sodium (Depakote Sprinkle) 750 mg PO HS [facility]; Protocol Stop: 02/17/20 20:59 Last Admin: 12/25/19 21:20 Dose: 750 mg Ibuprofen (Motrin) 400 mg PO Q4H PRN PRN Reason: Pain (Severe 7-10) Stop: 02/17/20 15:31 Lisinopril (Zestril) 5 mg PO DAILY [facility] Stop: 02/18/20 08:59 Last Admin: 12/26/19 08:41 Dose: 5 mg Lorazepam (Ativan) 0.5 mg PO Q4HR PRN; Protocol PRN Reason: Anxiety Stop: 01/18/20 15:31 Last Admin: 12/25/19 07:00 Dose: 0.5 mg Magnesium Hydroxide (Milk Of Magnesia) 30 ml PO HS PRN PRN Reason: Constipation Multivitamins/Vitamin C (Theragran) 1 tab PO DAILY [facility] Stop: 02/18/20 08:59 Last Admin: 12/26/19 08:41 Dose: 1 tab Olanzapine (Zyprexa) 5 mg PO DAILY [facility]; Protocol Stop: 02/18/20 13:59 Last Admin: 12/26/19 08:41 Dose: 5 mg Olanzapine (Zyprexa) 20 mg PO HS [facility]; Protocol Stop: 02/23/20 20:59 Last Admin: 12/25/19 21:20 Dose: 20 mg Oxcarbazepine (Trileptal) 600 mg PO BID [facility]; Protocol Stop: 02/17/20 16:59 Last Admin: 12/26/19 08:41 Dose: 600 mg Zolpidem Tartrate (Ambien) 5 mg PO HS PRN PRN Reason: Insomnia Stop: 02/23/20 19:37 Last Admin: 12/25/19 21:21 Dose: 5 mg Physical Exam: Patient will continue to be monitored, continues to be aggressive, easily agitated. General: alert, other (Dis-oriented and in agitated mood.) HEENT: NC/AT, PERRLA Neck: Supple, No JVD Lungs: CTAB Cardiovascular: RRR, Normal S1 Abdomen: soft, non-tender, non-distended Extremities: clear Neurological: no change, disorganized Internal Medicine Assmt/Plan - Assessment Assessment: Psychosis. Anxiety. Depression. History of Diabetes. History of Hypertension. History of Seizure disorder. History of COPD. History of Cardiac disease. - Plan Plan: Accu-check daily, Monitor vitals, labs. Continue present meds as directed. Monitor pain, pain management. Continue pulmonary support prn. Monitor Low sodium diet/nutritional support. Safety precaution/Fall precaution. Supportive care. Continue present care management. Nutritional Asmnt/Malnutr-PDOC - Dietary Evaluation Malnutrition Findings (Please click <Entered> for more info): Nutritional Asmnt/Malnutrition Start: 12/23/19 11: 33 Text: Status: Complete Freq: Protocol: Document 12/23/19 11:49 NEERAJ (Rec: 12/23/19 12:08 NEERAJ MALAGON- [id number]) Nutritional Asmnt/Malnutrition Patient General Information Nutritional Screening Moderate Risk Diagnosis Psychosis Pertinent Medical Hx/Surgical Hx Cardiac disease, diabetes, hypertension, COPD< seizure disorder, depression, anxiety Subjective Information Dietary currently providing average 1900 kcal, 80 gm protein per day; intake ~100% of meals. Per nursing notes, patient selectively mute. Patient asleep at time of visit. Current Diet Order/ Nutrition Support Cardiac Patient / S.O Not Indicated Pertinent Medications Maalox, MOM, Theragran Pertinent Labs (12/19) Cholesterol 203 Nutritional Hx/Data Height 1.7 m Height (Calculated Centimeters) 170.2 Current Weight (lbs) 68.039 kg Weight (Calculated Kilograms) 68.0 Weight (Calculated Grams) 13450.9 [place] Body Weight 148 % [place] Body Weight 101 Body Mass Index (BMI) 23.5 Recent Weight Change No Weight Status Approriate GI Symptoms GI Symptoms None Last BM 12/20 x 1 Difficult in: None Food Allergies No Cultural/Ethnic/Denominational Belief none indicated Usual diet at home unknown Skin Integrity/Comment: Zac 19, dryness Current %PO Good (75-100%) Estimated Nutritional Goals BEE in Kcals: Using Current wt Calories/Kcals/Kg 25-30 kcal/kg using CBW68.1kg Kcals Calculated ~5413-1700 kcal/day Protein: Using Current wt Protein g/kgm/kg Protein Calculated ~70 gm/day Fluid: ml ~5876-1189 ml/day 1 ml/kcal Nutritional Problem No current Nutrition Prob Problem No nutrition diagnosis at this time Intervention/Recommendation Comments 1. Continue cardiac diet as tolerated by patient ( Cholesterol 203) Expected Outcomes/Goals Expected Outcomes/Goals Oral intake >75% of meals, weight stable, nutrition related labs WNL F/U LR 12/29-
--- NOTE | 2019-12-26 21:15 | Progress Notes ---
DATE: 12/26/2019 Case was discussed with staff of the patient, reviewed records. The patient continues to be internally preoccupied. He is drooling. He continues to be unable to participate in a meaningful conversation or make safe plan for self-care. ____ Cogentin 2 mg twice a day and continues to stay to himself, looking disheveled, disorganized, internally preoccupied. We will continue outpatient group therapy, milieu therapy, adjust medication as needed. JOB# [id number]
[2019-12-27] MEDS: Benztropine 1 MG TAB PO SCH ×2 (08:27→16:16)
[2019-12-27] MEDS: Multivitamin Tab PO SCH (08:28)
--- NOTE | 2019-12-27 13:03 | Internal Medicine Prog Note ---
Internal Medicine Subjective - Subjective Service Date: 12/27/19 Patient seen and examined:: chart reviewed Patient is:: awake, verbal, in wheelchair, agitated Patient Complaints of:: other (very agitated and aggressive behavior.) Per staff patient has:: no adverse event, no episodes of fall, agitated, combative Internal Medicine Objective - Results Recent Labs: Laboratory Last Values Triglycerides 51 mg/dL (30-150) 12/20/19 08:54 Cholesterol 203 mg/dL (<200) H 12/20/19 08:54 LDL Cholesterol 110 mg/dL (0-129) 12/20/19 08:54 HDL Cholesterol 74 mg/dL (>45) 12/20/19 08:54 - Physical Exam Vitals and I&O: Vital Signs Temp 98.0 F 12/27/19 06:03 Pulse 61 12/27/19 08:28 Resp 18 12/27/19 07:46 BP 142/61 12/27/19 08:28 Pulse Ox 94 12/27/19 06:03 Intake & Output 12/26/19 12/27/19 12/27/19 18:59 06:59 18:59 Intake Total 300 Balance 300 Intake: Oral 300 Other: # Voids 1 # Bowel Movements 0 Stool Characteristics Soft Active Medications: Current Medications Acetaminophen (Tylenol) 650 mg PO Q4H PRN PRN Reason: Pain (Mild 1-3) Stop: 02/17/20 15:31 Acetaminophen (Tylenol Extra Strength) 1,000 mg PO Q6H PRN PRN Reason: Pain (Moderate 4-6) Stop: 02/17/20 15:31 Al Hydrox/Mg Hydrox/Simethicone (Maalox) 30 ml PO Q4HR PRN PRN Reason: GI DISTRESS Stop: 02/17/20 15:31 Amitriptyline HCl (Elavil) 25 mg PO BID [facility]; Protocol Stop: 02/17/20 16:59 Last Admin: 12/27/19 08:27 Dose: 25 mg Amlodipine Besylate (Norvasc) 10 mg PO DAILY [facility] Stop: 02/18/20 08:59 Last Admin: 12/27/19 08:28 Dose: 10 mg Benztropine Mesylate (Cogentin) 2 mg PO BID [facility] Stop: 02/17/20 16:59 Last Admin: 12/27/19 08:27 Dose: 2 mg Divalproex Sodium (Depakote Sprinkle) 750 mg PO HS [facility]; Protocol Stop: 02/17/20 20:59 Last Admin: 12/26/19 20:56 Dose: 750 mg Ibuprofen (Motrin) 400 mg PO Q4H PRN PRN Reason: Pain (Severe 7-10) Stop: 02/17/20 15:31 Lisinopril (Zestril) 5 mg PO DAILY [facility] Stop: 02/18/20 08:59 Last Admin: 12/27/19 08:28 Dose: 5 mg Magnesium Hydroxide (Milk Of Magnesia) 30 ml PO HS PRN PRN Reason: Constipation Multivitamins/Vitamin C (Theragran) 1 tab PO DAILY [facility] Stop: 02/18/20 08:59 Last Admin: 12/27/19 08:28 Dose: 1 tab Olanzapine (Zyprexa) 5 mg PO DAILY [facility]; Protocol Stop: 02/18/20 13:59 Last Admin: 12/27/19 08:28 Dose: 5 mg Olanzapine (Zyprexa) 20 mg PO HS [facility]; Protocol Stop: 02/23/20 20:59 Last Admin: 12/26/19 20:57 Dose: 20 mg Oxcarbazepine (Trileptal) 600 mg PO BID [facility]; Protocol Stop: 02/17/20 16:59 Last Admin: 12/27/19 08:27 Dose: 600 mg Zolpidem Tartrate (Ambien) 5 mg PO HS PRN PRN Reason: Insomnia Stop: 02/23/20 19:37 Last Admin: 12/25/19 21:21 Dose: 5 mg Physical Exam: Patient will continue to be monitored, withdrawn. General: alert, other (Dis-oriented and in agitated mood.) HEENT: NC/AT, PERRLA Neck: Supple, No JVD Lungs: CTAB Cardiovascular: RRR, Normal S1 Abdomen: soft, non-tender, non-distended Extremities: clear Neurological: no change, disorganized Internal Medicine Assmt/Plan - Assessment Assessment: Psychosis. Anxiety. Depression. History of Diabetes. History of Hypertension. History of Seizure disorder. History of COPD. History of Cardiac disease. - Plan Plan: Accu-check daily, Monitor vitals, labs. Continue present meds as directed. Monitor pain, pain management. Continue pulmonary support prn. Monitor Low sodium diet/nutritional support. Safety precaution/Fall precaution. Supportive care. Continue present care management. Nutritional Asmnt/Malnutr-PDOC - Dietary Evaluation Malnutrition Findings (Please click <Entered> for more info): Nutritional Asmnt/Malnutrition Start: 12/23/19 11: 33 Text: Status: Complete Freq: Protocol: Document 12/23/19 11:49 EARNESTLEIF (Rec: 12/23/19 12:08 MMULLEIF VESNA- [id number]) Nutritional Asmnt/Malnutrition Patient General Information Nutritional Screening Moderate Risk Diagnosis Psychosis Pertinent Medical Hx/Surgical Hx Cardiac disease, diabetes, hypertension, COPD< seizure disorder, depression, anxiety Subjective Information Dietary currently providing average 1900 kcal, 80 gm protein per day; intake ~100% of meals. Per nursing notes, patient selectively mute. Patient asleep at time of visit. Current Diet Order/ Nutrition Support Cardiac Patient / S.O Not Indicated Pertinent Medications Maalox, MOM, Theragran Pertinent Labs (12/19) Cholesterol 203 Nutritional Hx/Data Height 1.7 m Height (Calculated Centimeters) 170.2 Current Weight (lbs) 68.039 kg Weight (Calculated Kilograms) 68.0 Weight (Calculated Grams) 90402.9 [place] Body Weight 148 % [place] Body Weight 101 Body Mass Index (BMI) 23.5 Recent Weight Change No Weight Status Approriate GI Symptoms GI Symptoms None Last BM 12/20 x 1 Difficult in: None Food Allergies No Cultural/Ethnic/Voodoo Belief none indicated Usual diet at home unknown Skin Integrity/Comment: Zac 19, dryness Current %PO Good (75-100%) Estimated Nutritional Goals BEE in Kcals: Using Current wt Calories/Kcals/Kg 25-30 kcal/kg using CBW68.1kg Kcals Calculated ~8442-8751 kcal/day Protein: Using Current wt Protein g/kgm/kg Protein Calculated ~70 gm/day Fluid: ml ~2204-4211 ml/day 1 ml/kcal Nutritional Problem No current Nutrition Prob Problem No nutrition diagnosis at this time Intervention/Recommendation Comments 1. Continue cardiac diet as tolerated by patient ( Cholesterol 203) Expected Outcomes/Goals Expected Outcomes/Goals Oral intake >75% of meals, weight stable, nutrition related labs WNL F/U LR 12/29-
--- NOTE | 2019-12-27 14:18 | Progress Notes ---
DATE: 12/27/[address] Lo. Case was discussed with staff of the patient, reviewed records. The patient continues to be confused, overwhelmed. Apparently, he is otherwise on a fall risk, but he fell in the past few days. He is on a Karen chair. He is sleeping well, eating well. Continues to be unable to carry on a reasonable conversation, mumbling to himself, though his speech is a bit more clear. No side effects with the medication, no sedation, no nausea, no extrapyramidal symptoms. We will continue outpatient group therapy, milieu therapy, and adjust medications as needed. JOB# [id number]
[2019-12-28] MEDS: Multivitamin Tab PO SCH (08:17)
[2019-12-28] MEDS: Benztropine 1 MG TAB PO SCH ×2 (08:17→16:23)
--- NOTE | 2019-12-28 11:00 | Internal Medicine Prog Note ---
Internal Medicine Subjective - Subjective Service Date: 12/28/19 Patient seen and examined:: chart reviewed Patient is:: awake, verbal, in wheelchair, agitated Patient Complaints of:: other (very agitated and aggressive behavior.) Per staff patient has:: no adverse event, no episodes of fall, agitated, combative Internal Medicine Objective - Results Recent Labs: Laboratory Last Values Triglycerides 51 mg/dL (30-150) 12/20/19 08:54 Cholesterol 203 mg/dL (<200) H 12/20/19 08:54 LDL Cholesterol 110 mg/dL (0-129) 12/20/19 08:54 HDL Cholesterol 74 mg/dL (>45) 12/20/19 08:54 - Physical Exam Vitals and I&O: Vital Signs Temp 97.6 F 12/27/19 20:00 Pulse 65 12/28/19 08:19 Resp 18 12/27/19 20:00 BP 140/68 12/28/19 08:19 Pulse Ox 99 12/27/19 20:00 Intake & Output 12/27/19 12/28/19 12/28/19 18:59 06:59 18:59 Intake Total 800 120 Balance 800 120 Intake: Oral 800 120 Other: # Voids 2 3 # Bowel Movements 0 Active Medications: Current Medications Acetaminophen (Tylenol) 650 mg PO Q4H PRN PRN Reason: Pain (Mild 1-3) Stop: 02/17/20 15:31 Acetaminophen (Tylenol Extra Strength) 1,000 mg PO Q6H PRN PRN Reason: Pain (Moderate 4-6) Stop: 02/17/20 15:31 Al Hydrox/Mg Hydrox/Simethicone (Maalox) 30 ml PO Q4HR PRN PRN Reason: GI DISTRESS Stop: 02/17/20 15:31 Amitriptyline HCl (Elavil) 25 mg PO BID [facility]; Protocol Stop: 02/17/20 16:59 Last Admin: 12/28/19 08:18 Dose: 25 mg Amlodipine Besylate (Norvasc) 10 mg PO DAILY [facility] Stop: 02/18/20 08:59 Last Admin: 12/28/19 08:19 Dose: 10 mg Benztropine Mesylate (Cogentin) 2 mg PO BID [facility] Stop: 02/17/20 16:59 Last Admin: 12/28/19 08:17 Dose: 2 mg Divalproex Sodium (Depakote Sprinkle) 750 mg PO HS [facility]; Protocol Stop: 02/17/20 20:59 Last Admin: 12/27/19 20:35 Dose: 750 mg Ibuprofen (Motrin) 400 mg PO Q4H PRN PRN Reason: Pain (Severe 7-10) Stop: 02/17/20 15:31 Lisinopril (Zestril) 5 mg PO DAILY [facility] Stop: 02/18/20 08:59 Last Admin: 12/28/19 08:19 Dose: 5 mg Magnesium Hydroxide (Milk Of Magnesia) 30 ml PO HS PRN PRN Reason: Constipation Multivitamins/Vitamin C (Theragran) 1 tab PO DAILY [facility] Stop: 02/18/20 08:59 Last Admin: 12/28/19 08:17 Dose: 1 tab Olanzapine (Zyprexa) 5 mg PO DAILY [facility]; Protocol Stop: 02/18/20 13:59 Last Admin: 12/28/19 08:17 Dose: 5 mg Olanzapine (Zyprexa) 20 mg PO HS [facility]; Protocol Stop: 02/23/20 20:59 Last Admin: 12/27/19 20:35 Dose: 20 mg Oxcarbazepine (Trileptal) 600 mg PO BID [facility]; Protocol Stop: 02/17/20 16:59 Last Admin: 12/28/19 08:17 Dose: 600 mg Zolpidem Tartrate (Ambien) 5 mg PO HS PRN PRN Reason: Insomnia Stop: 02/23/20 19:37 Last Admin: 12/25/19 21:21 Dose: 5 mg Physical Exam: Patient will continue to be monitored, patient is still talking to himself and isolates himself from others. General: alert, other (Dis-oriented and in agitated mood.) HEENT: NC/AT, PERRLA Neck: Supple, No JVD Lungs: CTAB Cardiovascular: RRR, Normal S1 Abdomen: soft, non-tender, non-distended Extremities: clear Neurological: no change, disorganized Internal Medicine Assmt/Plan - Assessment Assessment: Psychosis. Anxiety. Depression. History of Diabetes. History of Hypertension. History of Seizure disorder. History of COPD. History of Cardiac disease. - Plan Plan: Accu-check daily, Monitor vitals, labs. Continue present mes as directed. Monitor pain, pain management. Continue pulmonary support prn. Monitor Low sodium diet/nutritional support. Safety precaution/Fall precaution. Supportive care. Continue present care management. Nutritional Asmnt/Malnutr-PDOC - Dietary Evaluation Malnutrition Findings (Please click <Entered> for more info): Nutritional Asmnt/Malnutrition Start: 12/23/19 11: 33 Text: Status: Complete Freq: Protocol: Document 12/23/19 11:49 NEERAJ (Rec: 12/23/19 12:08 MMULHERCarlin VESNA- [id number]) Nutritional Asmnt/Malnutrition Patient General Information Nutritional Screening Moderate Risk Diagnosis Psychosis Pertinent Medical Hx/Surgical Hx Cardiac disease, diabetes, hypertension, COPD< seizure disorder, depression, anxiety Subjective Information Dietary currently providing average 1900 kcal, 80 gm protein per day; intake ~100% of meals. Per nursing notes, patient selectively mute. Patient asleep at time of visit. Current Diet Order/ Nutrition Support Cardiac Patient / S.O Not Indicated Pertinent Medications Maalox, MOM, Theragran Pertinent Labs (12/19) Cholesterol 203 Nutritional Hx/Data Height 1.7 m Height (Calculated Centimeters) 170.2 Current Weight (lbs) 68.039 kg Weight (Calculated Kilograms) 68.0 Weight (Calculated Grams) 19802.9 [place] Body Weight 148 % [place] Body Weight 101 Body Mass Index (BMI) 23.5 Recent Weight Change No Weight Status Approriate GI Symptoms GI Symptoms None Last BM 12/20 x 1 Difficult in: None Food Allergies No Cultural/Ethnic/Taoist Belief none indicated Usual diet at home unknown Skin Integrity/Comment: Zac 19, dryness Current %PO Good (75-100%) Estimated Nutritional Goals BEE in Kcals: Using Current wt Calories/Kcals/Kg 25-30 kcal/kg using CBW68.1kg Kcals Calculated ~4897-4859 kcal/day Protein: Using Current wt Protein g/kgm/kg Protein Calculated ~70 gm/day Fluid: ml ~7308-2966 ml/day 1 ml/kcal Nutritional Problem No current Nutrition Prob Problem No nutrition diagnosis at this time Intervention/Recommendation Comments 1. Continue cardiac diet as tolerated by patient ( Cholesterol 203) Expected Outcomes/Goals Expected Outcomes/Goals Oral intake >75% of meals, weight stable, nutrition related labs WNL F/U LR 12/29-
--- NOTE | 2019-12-28 19:00 | Progress Notes ---
DATE: 12/28/2019 Case was discussed with staff of the patient, reviewed records. The patient continues to have poor insight, continues to be drooling though he is on Cogentin. He is sleeping well and eating well. He can feed himself, but he is mumbling to himself. Continues to be unable to participate in a meaningful conversation or make safe plan for self-care, easily agitated, and disorganized. I will continue outpatient group therapy, milieu therapy, and adjust medications as needed. JOB# [id number]
[2019-12-29] MEDS: Benztropine 1 MG TAB PO SCH ×2 (08:20→16:44)
[2019-12-29] MEDS: Multivitamin Tab PO SCH (08:20)
--- NOTE | 2019-12-29 12:09 | Internal Medicine Prog Note ---
Internal Medicine Subjective - Subjective Service Date: 12/29/19 Patient seen and examined:: chart reviewed Patient is:: awake, verbal, in wheelchair, agitated Patient Complaints of:: other (very agitated and aggressive behavior.) Per staff patient has:: no adverse event, no episodes of fall, agitated, combative Internal Medicine Objective - Results Recent Labs: Laboratory Last Values Triglycerides 51 mg/dL (30-150) 12/20/19 08:54 Cholesterol 203 mg/dL (<200) H 12/20/19 08:54 LDL Cholesterol 110 mg/dL (0-129) 12/20/19 08:54 HDL Cholesterol 74 mg/dL (>45) 12/20/19 08:54 - Physical Exam Vitals and I&O: Vital Signs Temp 98.7 F 12/28/19 20:00 Pulse 68 12/29/19 08:19 Resp 18 12/29/19 08:00 BP 139/70 12/29/19 08:19 Pulse Ox 98 12/28/19 20:00 Intake & Output 12/28/19 12/29/19 12/29/19 18:59 06:59 18:59 Intake Total 800 120 Balance 800 120 Intake: Oral 800 120 Other: # Voids 3 3 # Bowel Movements 0 Active Medications: Current Medications Acetaminophen (Tylenol) 650 mg PO Q4H PRN PRN Reason: Pain (Mild 1-3) Stop: 02/17/20 15:31 Acetaminophen (Tylenol Extra Strength) 1,000 mg PO Q6H PRN PRN Reason: Pain (Moderate 4-6) Stop: 02/17/20 15:31 Al Hydrox/Mg Hydrox/Simethicone (Maalox) 30 ml PO Q4HR PRN PRN Reason: GI DISTRESS Stop: 02/17/20 15:31 Amitriptyline HCl (Elavil) 25 mg PO BID [facility]; Protocol Stop: 02/17/20 16:59 Last Admin: 12/29/19 08:20 Dose: 25 mg Amlodipine Besylate (Norvasc) 10 mg PO DAILY [facility] Stop: 02/18/20 08:59 Last Admin: 12/29/19 08:19 Dose: 10 mg Benztropine Mesylate (Cogentin) 2 mg PO BID [facility] Stop: 02/17/20 16:59 Last Admin: 12/29/19 08:20 Dose: 2 mg Divalproex Sodium (Depakote Sprinkle) 750 mg PO HS [facility]; Protocol Stop: 02/17/20 20:59 Last Admin: 12/28/19 20:59 Dose: 750 mg Ibuprofen (Motrin) 400 mg PO Q4H PRN PRN Reason: Pain (Severe 7-10) Stop: 02/17/20 15:31 Lisinopril (Zestril) 5 mg PO DAILY [facility] Stop: 02/18/20 08:59 Last Admin: 12/29/19 08:19 Dose: 5 mg Magnesium Hydroxide (Milk Of Magnesia) 30 ml PO HS PRN PRN Reason: Constipation Multivitamins/Vitamin C (Theragran) 1 tab PO DAILY [facility] Stop: 02/18/20 08:59 Last Admin: 12/29/19 08:20 Dose: 1 tab Olanzapine (Zyprexa) 5 mg PO DAILY [facility]; Protocol Stop: 02/18/20 13:59 Last Admin: 12/29/19 08:20 Dose: 5 mg Olanzapine (Zyprexa) 20 mg PO HS [facility]; Protocol Stop: 02/23/20 20:59 Last Admin: 12/28/19 21:00 Dose: 20 mg Oxcarbazepine (Trileptal) 600 mg PO BID [facility]; Protocol Stop: 02/17/20 16:59 Last Admin: 12/29/19 08:20 Dose: 600 mg Zolpidem Tartrate (Ambien) 5 mg PO HS PRN PRN Reason: Insomnia Stop: 02/23/20 19:37 Last Admin: 12/25/19 21:21 Dose: 5 mg Physical Exam: Patient will continue to be monitored closely, patient is still mumbling and easily frustrated, drooling, has fair appetite. General: alert, other (Dis-oriented and in agitated mood.) HEENT: NC/AT, PERRLA Neck: Supple, No JVD Lungs: CTAB Cardiovascular: RRR, Normal S1 Abdomen: soft, non-tender, non-distended Extremities: clear Neurological: no change, disorganized Internal Medicine Assmt/Plan - Assessment Assessment: Psychosis. Anxiety. Depression. History of Diabetes. History of Hypertension. History of Seizure disorder. History of COPD. History of Cardiac disease. - Plan Plan: Accu-check daily, Monitor vitals, labs. Continue present mes as directed. Monitor pain, pain management. Continue pulmonary support prn. Monitor Low sodium diet/nutritional support. Safety precaution/Fall precaution. Supportive care. Continue present care management. Nutritional Asmnt/Malnutr-PDOC - Dietary Evaluation Malnutrition Findings (Please click <Entered> for more info): Nutritional Asmnt/Malnutrition Start: 12/23/19 11: 33 Text: Status: Complete Freq: Protocol: Document 12/23/19 11:49 NEERAJ (Rec: 12/23/19 12:08 MMULHERN VESNA- [id number]) Nutritional Asmnt/Malnutrition Patient General Information Nutritional Screening Moderate Risk Diagnosis Psychosis Pertinent Medical Hx/Surgical Hx Cardiac disease, diabetes, hypertension, COPD< seizure disorder, depression, anxiety Subjective Information Dietary currently providing average 1900 kcal, 80 gm protein per day; intake ~100% of meals. Per nursing notes, patient selectively mute. Patient asleep at time of visit. Current Diet Order/ Nutrition Support Cardiac Patient / S.O Not Indicated Pertinent Medications Maalox, MOM, Theragran Pertinent Labs (12/19) Cholesterol 203 Nutritional Hx/Data Height 1.7 m Height (Calculated Centimeters) 170.2 Current Weight (lbs) 68.039 kg Weight (Calculated Kilograms) 68.0 Weight (Calculated Grams) 11231.9 [place] Body Weight 148 % [place] Body Weight 101 Body Mass Index (BMI) 23.5 Recent Weight Change No Weight Status Approriate GI Symptoms GI Symptoms None Last BM 12/20 x 1 Difficult in: None Food Allergies No Cultural/Ethnic/Jewish Belief none indicated Usual diet at home unknown Skin Integrity/Comment: Zac 19, dryness Current %PO Good (75-100%) Estimated Nutritional Goals BEE in Kcals: Using Current wt Calories/Kcals/Kg 25-30 kcal/kg using CBW68.1kg Kcals Calculated ~7684-1215 kcal/day Protein: Using Current wt Protein g/kgm/kg Protein Calculated ~70 gm/day Fluid: ml ~4795-9814 ml/day 1 ml/kcal Nutritional Problem No current Nutrition Prob Problem No nutrition diagnosis at this time Intervention/Recommendation Comments 1. Continue cardiac diet as tolerated by patient ( Cholesterol 203) Expected Outcomes/Goals Expected Outcomes/Goals Oral intake >75% of meals, weight stable, nutrition related labs WNL F/U LR 12/29-
--- NOTE | 2019-12-29 21:34 | Progress Notes ---
DATE: 12/29/2019 SUBJECTIVE: Case was discussed with staff of the patient, reviewed records. The patient continues to be internally preoccupied, psychotic, confused and sleeping well, eating well. No side effects with the medication, no sedation, no nausea, no extrapyramidal symptoms. We will continue outpatient group therapy, milieu therapy, and adjust medications as needed. JOB# [id number]
[2019-12-30] MEDS: Multivitamin Tab PO SCH (08:50)
[2019-12-30] MEDS: Benztropine 1 MG TAB PO SCH ×2 (08:50→17:03)
--- NOTE | 2019-12-30 15:29 | Progress Notes ---
DATE: 12/30/2019 SUBJECTIVE: The patient was seen in his room. The patient is asleep, but easily arousable. The patient ____ guarded, easily gets frustrated and agitated. Otherwise, the patient appears to be in no acute distress. OBJECTIVE: VITAL SIGNS: Temperature 98.1, heart rate 73, respirations 20, blood pressure 134/68. HEENT: Head is atraumatic and normocephalic. Eyes: Bilateral conjunctivae are clear. Bilateral pupils equally round, reactive. NECK: Supple. No JVD. CARDIOVASCULAR: S1 and S2, without murmur. PULMONARY: Clear to auscultation. GASTROINTESTINAL: Soft and nontender without guarding. Positive bowel sounds. MUSCULOSKELETAL: No clubbing. No cyanosis noted. ASSESSMENT: 1. Schizophrenia. 2. Seizure disorder. 3. History of hypertension. PLAN: We will keep the patient in Inpatient Psychiatric Unit. We will followup with a psychiatrist to monitor the patient's condition and behavior. We will put the patient on seizure precautions and fall precaution. Treatment plans were discussed with the patient's nurse. Treatment plans were discussed with Dr. Betancur. JOB# [id number]
--- NOTE | 2019-12-30 17:59 | Progress Notes ---
DATE: 12/30/[address] Lo. SUBJECTIVE: Case was discussed with staff of the patient, reviewed records. The patient is a morbidly obese male came here and has still isolating himself. He sleep well and eats well. He denies any intent to harm himself or anyone. Denies any visual hallucination or paranoia. Denies having any side effects. No side effects with the medication, no sedation, no nausea, no extrapyramidal symptoms. We will continue tolerating increase in Zyprexa. We will continue outpatient group therapy, milieu therapy, and adjust medication as needed. JOB# [id number]
[2019-12-31] MEDS: Benztropine 1 MG TAB PO SCH ×2 (08:48→16:35)
[2019-12-31] MEDS: Multivitamin Tab PO SCH (08:48)
--- NOTE | 2019-12-31 10:08 | Internal Medicine Prog Note ---
Internal Medicine Subjective - Subjective Service Date: 12/31/19 Patient seen and examined:: with staff, chart reviewed Patient is:: awake, verbal, in wheelchair, agitated Patient Complaints of:: other (very agitated and aggressive behavior.) Per staff patient has:: no adverse event, no episodes of fall, agitated, combative Internal Medicine Objective - Results Recent Labs: Laboratory Last Values Triglycerides 51 mg/dL (30-150) 12/20/19 08:54 Cholesterol 203 mg/dL (<200) H 12/20/19 08:54 LDL Cholesterol 110 mg/dL (0-129) 12/20/19 08:54 HDL Cholesterol 74 mg/dL (>45) 12/20/19 08:54 - Physical Exam Vitals and I&O: Vital Signs Temp 99.0 F 12/31/19 06:20 Pulse 80 12/31/19 08:49 Resp 20 12/31/19 06:20 BP 125/53 12/31/19 08:49 Pulse Ox 93 12/31/19 06:20 Intake & Output 12/30/19 12/31/19 12/31/19 18:59 06:59 18:59 Intake Total 1000 240 Balance 1000 240 Intake: Oral 1000 240 Other: # Voids 3 2 # Bowel Movements 0 Active Medications: Current Medications Acetaminophen (Tylenol) 650 mg PO Q4H PRN PRN Reason: Pain (Mild 1-3) Stop: 02/17/20 15:31 Acetaminophen (Tylenol Extra Strength) 1,000 mg PO Q6H PRN PRN Reason: Pain (Moderate 4-6) Stop: 02/17/20 15:31 Al Hydrox/Mg Hydrox/Simethicone (Maalox) 30 ml PO Q4HR PRN PRN Reason: GI DISTRESS Stop: 02/17/20 15:31 Amitriptyline HCl (Elavil) 25 mg PO BID [facility]; Protocol Stop: 02/17/20 16:59 Last Admin: 12/31/19 08:48 Dose: 25 mg Amlodipine Besylate (Norvasc) 10 mg PO DAILY [facility] Stop: 02/18/20 08:59 Last Admin: 12/31/19 08:48 Dose: 10 mg Benztropine Mesylate (Cogentin) 2 mg PO BID [facility] Stop: 02/17/20 16:59 Last Admin: 12/31/19 08:48 Dose: 2 mg Divalproex Sodium (Depakote Sprinkle) 750 mg PO HS [facility]; Protocol Stop: 02/17/20 20:59 Last Admin: 12/30/19 21:32 Dose: 750 mg Ibuprofen (Motrin) 400 mg PO Q4H PRN PRN Reason: Pain (Severe 7-10) Stop: 02/17/20 15:31 Lisinopril (Zestril) 5 mg PO DAILY [facility] Stop: 02/18/20 08:59 Last Admin: 12/31/19 08:49 Dose: 5 mg Magnesium Hydroxide (Milk Of Magnesia) 30 ml PO HS PRN PRN Reason: Constipation Multivitamins/Vitamin C (Theragran) 1 tab PO DAILY [facility] Stop: 02/18/20 08:59 Last Admin: 12/31/19 08:48 Dose: 1 tab Olanzapine (Zyprexa) 5 mg PO DAILY [facility]; Protocol Stop: 02/18/20 13:59 Last Admin: 12/31/19 08:47 Dose: 5 mg Olanzapine (Zyprexa) 20 mg PO HS [facility]; Protocol Stop: 02/23/20 20:59 Last Admin: 12/30/19 21:32 Dose: 20 mg Oxcarbazepine (Trileptal) 600 mg PO BID [facility]; Protocol Stop: 02/17/20 16:59 Last Admin: 12/31/19 08:48 Dose: 600 mg Zolpidem Tartrate (Ambien) 5 mg PO HS PRN PRN Reason: Insomnia Stop: 02/23/20 19:37 Last Admin: 12/30/19 21:32 Dose: 5 mg Physical Exam: Patient will continue to be monitored closely, patient is drooling, still talking to himself, easily irritated, stays to himself. General: alert, other (Dis-oriented and in agitated mood.) HEENT: NC/AT, PERRLA Neck: Supple, No JVD Lungs: CTAB Cardiovascular: RRR, Normal S1 Abdomen: soft, non-tender, non-distended Extremities: clear Neurological: no change, disorganized Internal Medicine Assmt/Plan - Assessment Assessment: Psychosis. Schizophrenia. Anxiety. Depression. Diabetes. Hypertension. Seizure disorder. COPD. History of Cardiac disease. - Plan Plan: Accu-check daily, Monitor vitals, labs. Continue present meds as directed. Monitor pain, pain management. Seizure precaution. Pulmonary support prn. Monitor Low sodium diabetic diet/nutritional support. Safety precaution/Fall precaution. Supportive care. Continue present care management. Nutritional Asmnt/Malnutr-PDOC - Dietary Evaluation Malnutrition Findings (Please click <Entered> for more info): Nutritional Asmnt/Malnutrition Start: 12/23/19 11: 33 Text: Status: Complete Freq: Protocol: Document 12/23/19 11:49 NEERAJ (Rec: 12/23/19 12:08 MMULLEIF VESNA- [id number]) Nutritional Asmnt/Malnutrition Patient General Information Nutritional Screening Moderate Risk Diagnosis Psychosis Pertinent Medical Hx/Surgical Hx Cardiac disease, diabetes, hypertension, COPD< seizure disorder, depression, anxiety Subjective Information Dietary currently providing average 1900 kcal, 80 gm protein per day; intake ~100% of meals. Per nursing notes, patient selectively mute. Patient asleep at time of visit. Current Diet Order/ Nutrition Support Cardiac Patient / S.O Not Indicated Pertinent Medications Maalox, MOM, Theragran Pertinent Labs (12/19) Cholesterol 203 Nutritional Hx/Data Height 1.7 m Height (Calculated Centimeters) 170.2 Current Weight (lbs) 68.039 kg Weight (Calculated Kilograms) 68.0 Weight (Calculated Grams) 48539.9 [place] Body Weight 148 % [place] Body Weight 101 Body Mass Index (BMI) 23.5 Recent Weight Change No Weight Status Approriate GI Symptoms GI Symptoms None Last BM 12/20 x 1 Difficult in: None Food Allergies No Cultural/Ethnic/Hinduism Belief none indicated Usual diet at home unknown Skin Integrity/Comment: Zac 19, dryness Current %PO Good (75-100%) Estimated Nutritional Goals BEE in Kcals: Using Current wt Calories/Kcals/Kg 25-30 kcal/kg using CBW68.1kg Kcals Calculated ~0522-3829 kcal/day Protein: Using Current wt Protein g/kgm/kg Protein Calculated ~70 gm/day Fluid: ml ~9366-4190 ml/day 1 ml/kcal Nutritional Problem No current Nutrition Prob Problem No nutrition diagnosis at this time Intervention/Recommendation Comments 1. Continue cardiac diet as tolerated by patient ( Cholesterol 203) Expected Outcomes/Goals Expected Outcomes/Goals Oral intake >75% of meals, weight stable, nutrition related labs WNL F/U LR
--- NOTE | 2019-12-31 16:37 | Internal Medicine Prog Note ---
Internal Medicine Subjective - Subjective Patient is:: awake, verbal, in wheelchair, agitated Patient Complaints of:: other (very agitated and aggressive behavior.) Per staff patient has:: no adverse event, no episodes of fall, agitated, combative, other (persistent fever) Internal Medicine Objective - Results Recent Labs: Laboratory Last Values Triglycerides 51 mg/dL (30-150) 12/20/19 08:54 Cholesterol 203 mg/dL (<200) H 12/20/19 08:54 LDL Cholesterol 110 mg/dL (0-129) 12/20/19 08:54 HDL Cholesterol 74 mg/dL (>45) 12/20/19 08:54 - Physical Exam Vitals and I&O: Vital Signs Temp 97.9 F 12/31/19 11:01 Pulse 80 12/31/19 08:49 Resp 20 12/31/19 08:00 BP 125/53 12/31/19 08:49 Pulse Ox 93 12/31/19 06:20 Intake & Output 12/30/19 12/31/19 12/31/19 18:59 06:59 18:59 Intake Total 1000 240 Balance 1000 240 Intake: Oral 1000 240 Other: # Voids 3 2 # Bowel Movements 0 Active Medications: Current Medications Acetaminophen (Tylenol) 650 mg PO Q4H PRN PRN Reason: Pain (Mild 1-3) Stop: 02/17/20 15:31 Last Admin: 12/31/19 14:43 Dose: 650 mg Acetaminophen (Tylenol Extra Strength) 1,000 mg PO Q6H PRN PRN Reason: Pain (Moderate 4-6) Stop: 02/17/20 15:31 Al Hydrox/Mg Hydrox/Simethicone (Maalox) 30 ml PO Q4HR PRN PRN Reason: GI DISTRESS Stop: 02/17/20 15:31 Amitriptyline HCl (Elavil) 25 mg PO BID [facility]; Protocol Stop: 02/17/20 16:59 Last Admin: 12/31/19 08:48 Dose: 25 mg Amlodipine Besylate (Norvasc) 10 mg PO DAILY [facility] Stop: 02/18/20 08:59 Last Admin: 12/31/19 08:48 Dose: 10 mg Benztropine Mesylate (Cogentin) 2 mg PO BID [facility] Stop: 02/17/20 16:59 Last Admin: 12/31/19 08:48 Dose: 2 mg Divalproex Sodium (Depakote Sprinkle) 750 mg PO HS [facility]; Protocol Stop: 02/17/20 20:59 Last Admin: 12/30/19 21:32 Dose: 750 mg Ibuprofen (Motrin) 400 mg PO Q4H PRN PRN Reason: Pain (Severe 7-10) Stop: 02/17/20 15:31 Lisinopril (Zestril) 5 mg PO DAILY [facility] Stop: 02/18/20 08:59 Last Admin: 12/31/19 08:49 Dose: 5 mg Magnesium Hydroxide (Milk Of Magnesia) 30 ml PO HS PRN PRN Reason: Constipation Multivitamins/Vitamin C (Theragran) 1 tab PO DAILY [facility] Stop: 02/18/20 08:59 Last Admin: 12/31/19 08:48 Dose: 1 tab Olanzapine (Zyprexa) 5 mg PO DAILY [facility]; Protocol Stop: 02/18/20 13:59 Last Admin: 12/31/19 08:47 Dose: 5 mg Olanzapine (Zyprexa) 20 mg PO HS [facility]; Protocol Stop: 02/23/20 20:59 Last Admin: 12/30/19 21:32 Dose: 20 mg Oxcarbazepine (Trileptal) 600 mg PO BID [facility]; Protocol Stop: 02/17/20 16:59 Last Admin: 12/31/19 08:48 Dose: 600 mg Zolpidem Tartrate (Ambien) 5 mg PO HS PRN PRN Reason: Insomnia Stop: 02/23/20 19:37 Last Admin: 12/30/19 21:32 Dose: 5 mg General: alert, other (Dis-oriented and in agitated mood.) HEENT: NC/AT, PERRLA Neck: Supple, No JVD Lungs: CTAB Cardiovascular: RRR, Normal S1 Abdomen: soft, non-tender, non-distended Extremities: clear Neurological: no change, disorganized Internal Medicine Assmt/Plan - Assessment Assessment: Fever R/O Covid - test sent today Psychosis. Schizophrenia. Anxiety. Depression. Diabetes. Hypertension. Seizure disorder. COPD. History of Cardiac disease. - Plan Plan: Accu-check daily, Monitor vitals, labs. Continue present meds as directed. Monitor pain, pain management. Seizure precaution. Pulmonary support prn. Monitor Low sodium diabetic diet/nutritional support. Safety precaution/Fall precaution. Supportive care. Continue present care management. Follow up Covid test result. Isolate away from other residence and keep facemask on. Dr. Betancur aware. Nutritional Asmnt/Malnutr-PDOC - Dietary Evaluation Malnutrition Findings (Please click <Entered> for more info): Nutritional Asmnt/Malnutrition Start: 12/23/19 11: 33 Text: Status: Complete Freq: Protocol: Document 12/23/19 11:49 EARNESTCarlin (Rec: 12/23/19 12:08 MMULHERN VESNA- [id number]) Nutritional Asmnt/Malnutrition Patient General Information Nutritional Screening Moderate Risk Diagnosis Psychosis Pertinent Medical Hx/Surgical Hx Cardiac disease, diabetes, hypertension, COPD< seizure disorder, depression, anxiety Subjective Information Dietary currently providing average 1900 kcal, 80 gm protein per day; intake ~100% of meals. Per nursing notes, patient selectively mute. Patient asleep at time of visit. Current Diet Order/ Nutrition Support Cardiac Patient / S.O Not Indicated Pertinent Medications Maalox, MOM, Theragran Pertinent Labs (12/19) Cholesterol 203 Nutritional Hx/Data Height 5 ft 7 in Height (Calculated Centimeters) 170.2 Current Weight (lbs) 150 lb Weight (Calculated Kilograms) 68.0 Weight (Calculated Grams) 69756.9 [place] Body Weight 148 % [place] Body Weight 101 Body Mass Index (BMI) 23.5 Recent Weight Change No Weight Status Approriate GI Symptoms GI Symptoms None Last BM 12/20 x 1 Difficult in: None Food Allergies No Cultural/Ethnic/Voodoo Belief none indicated Usual diet at home unknown Skin Integrity/Comment: Zac 19, dryness Current %PO Good (75-100%) Estimated Nutritional Goals BEE in Kcals: Using Current wt Calories/Kcals/Kg 25-30 kcal/kg using CBW68.1kg Kcals Calculated ~7865-3356 kcal/day Protein: Using Current wt Protein g/kgm/kg Protein Calculated ~70 gm/day Fluid: ml ~0183-9787 ml/day 1 ml/kcal Nutritional Problem No current Nutrition Prob Problem No nutrition diagnosis at this time Intervention/Recommendation Comments 1. Continue cardiac diet as tolerated by patient ( Cholesterol 203) Expected Outcomes/Goals Expected Outcomes/Goals Oral intake >75% of meals, weight stable, nutrition related labs WNL F/U LR
--- NOTE | 2019-12-31 21:04 | Progress Notes ---
DATE: 12/31/2019 Case was discussed with staff of the patient, reviewed records. The patient is showing progress; however, developed temperature, but now is going down. The medical doctor is taking care of it and that is Dr. Betancur. He is sleeping well and eating well. He is improving. Working on placement. No side effects with the medication, no sedation, no nausea, no extrapyramidal symptoms. We will continue outpatient group therapy, milieu therapy, adjust medication as needed. JOB# [id number]
[2020-01-01] MEDS: Benztropine 1 MG TAB PO SCH ×2 (09:06→17:03)
[2020-01-01] MEDS: Multivitamin Tab PO SCH (09:07)
--- NOTE | 2020-01-01 12:52 | Internal Medicine Prog Note ---
Internal Medicine Subjective - Subjective Service Date: 01/01/20 Patient seen and examined:: chart reviewed Patient is:: awake, verbal, in wheelchair, agitated Patient Complaints of:: other (very agitated and aggressive behavior.) Per staff patient has:: no adverse event, no episodes of fall, agitated, combative, other (persistent fever) Internal Medicine Objective - Results Recent Labs: Laboratory Last Values Triglycerides 51 mg/dL (30-150) 12/20/19 08:54 Cholesterol 203 mg/dL (<200) H 12/20/19 08:54 LDL Cholesterol 110 mg/dL (0-129) 12/20/19 08:54 HDL Cholesterol 74 mg/dL (>45) 12/20/19 08:54 - Physical Exam Vitals and I&O: Vital Signs Temp 98.5 F 01/01/20 10:59 Pulse 62 01/01/20 10:59 Resp 20 01/01/20 10:59 BP 129/63 01/01/20 10:59 Pulse Ox 94 01/01/20 06:37 Intake & Output 12/31/19 01/01/20 01/01/20 18:59 06:59 18:59 Intake Total 120 Balance 120 Intake: Oral 120 Other: # Voids 3 # Bowel Movements 0 Active Medications: Current Medications Acetaminophen (Tylenol) 650 mg PO Q4H PRN PRN Reason: Pain (Mild 1-3) Stop: 02/17/20 15:31 Last Admin: 12/31/19 14:43 Dose: 650 mg Acetaminophen (Tylenol Extra Strength) 1,000 mg PO Q6H PRN PRN Reason: Pain (Moderate 4-6) Stop: 02/17/20 15:31 Acetaminophen (Tylenol) 650 mg PO Q4H PRN PRN Reason: [id number] Stop: 02/29/20 19:39 Last Admin: 01/01/20 01:42 Dose: 650 mg Al Hydrox/Mg Hydrox/Simethicone (Maalox) 30 ml PO Q4HR PRN PRN Reason: GI DISTRESS Stop: 02/17/20 15:31 Amitriptyline HCl (Elavil) 25 mg PO BID [facility]; Protocol Stop: 02/17/20 16:59 Last Admin: 01/01/20 09:07 Dose: 25 mg Amlodipine Besylate (Norvasc) 10 mg PO DAILY [facility] Stop: 02/18/20 08:59 Last Admin: 01/01/20 09:06 Dose: 10 mg Benztropine Mesylate (Cogentin) 2 mg PO BID [facility] Stop: 02/17/20 16:59 Last Admin: 01/01/20 09:06 Dose: 2 mg Divalproex Sodium (Depakote Sprinkle) 750 mg PO HS [facility]; Protocol Stop: 02/17/20 20:59 Last Admin: 12/31/19 21:13 Dose: 750 mg Ibuprofen (Motrin) 400 mg PO Q4H PRN PRN Reason: Pain (Severe 7-10) Stop: 02/17/20 15:31 Lisinopril (Zestril) 5 mg PO DAILY [facility] Stop: 02/18/20 08:59 Last Admin: 12/31/19 08:49 Dose: 5 mg Magnesium Hydroxide (Milk Of Magnesia) 30 ml PO HS PRN PRN Reason: Constipation Multivitamins/Vitamin C (Theragran) 1 tab PO DAILY [facility] Stop: 02/18/20 08:59 Last Admin: 01/01/20 09:07 Dose: 1 tab Olanzapine (Zyprexa) 20 mg PO HS [facility]; Protocol Stop: 02/23/20 20:59 Last Admin: 12/31/19 21:13 Dose: 20 mg Olanzapine (Zyprexa) 10 mg PO DAILY [facility]; Protocol Stop: 03/02/20 08:59 Oxcarbazepine (Trileptal) 600 mg PO BID [facility]; Protocol Stop: 02/17/20 16:59 Last Admin: 01/01/20 09:06 Dose: 600 mg Zolpidem Tartrate (Ambien) 5 mg PO HS PRN PRN Reason: Insomnia Stop: 02/23/20 19:37 Last Admin: 12/31/19 21:13 Dose: 5 mg Physical Exam: Patient will continue to be monitored closely, patient is withdrawn, easily irritated, appears annoyed. General: alert, other (Dis-oriented and in agitated mood.) HEENT: NC/AT, PERRLA Neck: Supple, No JVD Lungs: CTAB Cardiovascular: RRR, Normal S1 Abdomen: soft, non-tender, non-distended Extremities: clear Neurological: no change, disorganized Internal Medicine Assmt/Plan - Assessment Assessment: Psychosis. Schizophrenia. Anxiety. Depression. Diabetes. Hypertension. Seizure disorder. COPD. History of Cardiac disease. - Plan Plan: Accu-check daily, Monitor vitals, labs. Continue present meds as directed. Monitor pain, pain management. Seizure precaution. Pulmonary support prn. Monitor Low sodium diabetic diet/nutritional support. Safety precaution/Fall precaution. Supportive care. Continue present care management. Nutritional Asmnt/Malnutr-PDOC - Dietary Evaluation Malnutrition Findings (Please click <Entered> for more info): Nutritional Asmnt/Malnutrition Start: 12/23/19 11: 33 Text: Status: Complete Freq: Protocol: Document 12/23/19 11:49 MMULLEIF (Rec: 12/23/19 12:08 MMULLEIF VESNA- [id number]) Nutritional Asmnt/Malnutrition Patient General Information Nutritional Screening Moderate Risk Diagnosis Psychosis Pertinent Medical Hx/Surgical Hx Cardiac disease, diabetes, hypertension, COPD< seizure disorder, depression, anxiety Subjective Information Dietary currently providing average 1900 kcal, 80 gm protein per day; intake ~100% of meals. Per nursing notes, patient selectively mute. Patient asleep at time of visit. Current Diet Order/ Nutrition Support Cardiac Patient / S.O Not Indicated Pertinent Medications Maalox, MOM, Theragran Pertinent Labs (12/19) Cholesterol 203 Nutritional Hx/Data Height 1.7 m Height (Calculated Centimeters) 170.2 Current Weight (lbs) 68.039 kg Weight (Calculated Kilograms) 68.0 Weight (Calculated Grams) 21650.9 [place] Body Weight 148 % [place] Body Weight 101 Body Mass Index (BMI) 23.5 Recent Weight Change No Weight Status Approriate GI Symptoms GI Symptoms None Last BM 12/20 x 1 Difficult in: None Food Allergies No Cultural/Ethnic/Orthodox Belief none indicated Usual diet at home unknown Skin Integrity/Comment: Zac 19, dryness Current %PO Good (75-100%) Estimated Nutritional Goals BEE in Kcals: Using Current wt Calories/Kcals/Kg 25-30 kcal/kg using CBW68.1kg Kcals Calculated ~3191-0354 kcal/day Protein: Using Current wt Protein g/kgm/kg Protein Calculated ~70 gm/day Fluid: ml ~3389-4795 ml/day 1 ml/kcal Nutritional Problem No current Nutrition Prob Problem No nutrition diagnosis at this time Intervention/Recommendation Comments 1. Continue cardiac diet as tolerated by patient ( Cholesterol 203) Expected Outcomes/Goals Expected Outcomes/Goals Oral intake >75% of meals, weight stable, nutrition related labs WNL F/U LR 12/29-
--- NOTE | 2020-01-01 20:13 | Progress Notes ---
DATE: 01/01/2020 Case was discussed with staff of the records. The patient reports he has been aggressive, easily agitated, continues to have poor insight, continues to be unable to make safe plan for self-care. He is on Zyprexa 5 mg in the morning and 20 mg at bedtime. I will be increasing his Zyprexa to 10 mg in the morning to help decrease his agitation and aggressive behavior. No side effects with the medication, no sedation, no nausea, no extrapyramidal symptoms. We will continue outpatient group therapy, milieu therapy, and adjust the medications as needed. JOB# [id number]
[2020-01-02] MEDS: Multivitamin Tab PO SCH (08:32)
[2020-01-02] MEDS: Benztropine 1 MG TAB PO SCH (08:32)
--- NOTE | 2020-01-02 12:35 | Internal Medicine Prog Note ---
Internal Medicine Subjective - Subjective Service Date: 01/02/20 Patient seen and examined:: chart reviewed Patient is:: awake, verbal, in wheelchair, agitated Patient Complaints of:: other (very agitated and aggressive behavior.) Per staff patient has:: no adverse event, no episodes of fall, agitated, combative, other (persistent fever) Internal Medicine Objective - Results Recent Labs: Laboratory Last Values Triglycerides 51 mg/dL (30-150) 12/20/19 08:54 Cholesterol 203 mg/dL (<200) H 12/20/19 08:54 LDL Cholesterol 110 mg/dL (0-129) 12/20/19 08:54 HDL Cholesterol 74 mg/dL (>45) 12/20/19 08:54 - Physical Exam Vitals and I&O: Vital Signs Temp 98 F 01/02/20 05:11 Pulse 61 01/02/20 08:33 Resp 20 01/02/20 07:53 BP 125/58 01/02/20 08:33 Pulse Ox 95 01/02/20 05:11 Intake & Output 01/01/20 01/02/20 01/02/20 18:59 06:59 18:59 Intake Total 800 240 Output Total 1 Balance 800 239 Intake: Oral 800 240 Output: Urine/Stool Mix 1 Other: # Voids 3 1 # Bowel Movements 1 Active Medications: Current Medications Acetaminophen (Tylenol) 650 mg PO Q4H PRN PRN Reason: Pain (Mild 1-3) Stop: 02/17/20 15:31 Last Admin: 12/31/19 14:43 Dose: 650 mg Acetaminophen (Tylenol Extra Strength) 1,000 mg PO Q6H PRN PRN Reason: Pain (Moderate 4-6) Stop: 02/17/20 15:31 Acetaminophen (Tylenol) 650 mg PO Q4H PRN PRN Reason: [id number] Stop: 02/29/20 19:39 Last Admin: 01/01/20 21:05 Dose: 650 mg Al Hydrox/Mg Hydrox/Simethicone (Maalox) 30 ml PO Q4HR PRN PRN Reason: GI DISTRESS Stop: 02/17/20 15:31 Amitriptyline HCl (Elavil) 25 mg PO BID [facility]; Protocol Stop: 02/17/20 16:59 Last Admin: 01/02/20 08:31 Dose: 25 mg Amlodipine Besylate (Norvasc) 10 mg PO DAILY [facility] Stop: 02/18/20 08:59 Last Admin: 01/02/20 08:33 Dose: Not Given Benztropine Mesylate (Cogentin) 2 mg PO BID [facility] Stop: 02/17/20 16:59 Last Admin: 01/02/20 08:32 Dose: 2 mg Divalproex Sodium (Depakote Sprinkle) 750 mg PO HS [facility]; Protocol Stop: 02/17/20 20:59 Last Admin: 01/01/20 21:04 Dose: 750 mg Ibuprofen (Motrin) 400 mg PO Q4H PRN PRN Reason: Pain (Severe 7-10) Stop: 02/17/20 15:31 Lisinopril (Zestril) 5 mg PO DAILY [facility] Stop: 02/18/20 08:59 Last Admin: 01/02/20 08:33 Dose: Not Given Magnesium Hydroxide (Milk Of Magnesia) 30 ml PO HS PRN PRN Reason: Constipation Multivitamins/Vitamin C (Theragran) 1 tab PO DAILY [facility] Stop: 02/18/20 08:59 Last Admin: 01/02/20 08:32 Dose: 1 tab Olanzapine (Zyprexa) 20 mg PO HS [facility]; Protocol Stop: 02/23/20 20:59 Last Admin: 01/01/20 21:05 Dose: 20 mg Olanzapine (Zyprexa) 10 mg PO DAILY [facility]; Protocol Stop: 03/02/20 08:59 Last Admin: 01/02/20 08:32 Dose: 10 mg Oxcarbazepine (Trileptal) 600 mg PO BID [facility]; Protocol Stop: 02/17/20 16:59 Last Admin: 01/02/20 08:31 Dose: 600 mg Zolpidem Tartrate (Ambien) 5 mg PO HS PRN PRN Reason: Insomnia Stop: 02/23/20 19:37 Last Admin: 12/31/19 21:13 Dose: 5 mg Physical Exam: Patient is combative and easily agitated, prefers to be by himself, General: alert, other (Dis-oriented and in agitated mood.) HEENT: NC/AT, PERRLA Neck: Supple, No JVD Lungs: CTAB Cardiovascular: RRR, Normal S1 Abdomen: soft, non-tender, non-distended Extremities: clear Neurological: no change, disorganized Internal Medicine Assmt/Plan - Assessment Assessment: Psychosis. Schizophrenia. Anxiety. Depression. Diabetes. Hypertension. Seizure disorder. COPD. History of Cardiac disease. - Plan Plan: Accu-check daily, Monitor vitals, labs. Continue present meds as directed. Monitor pain, pain management. Seizure precaution. Pulmonary support prn. Monitor Low sodium diabetic diet/nutritional support. Safety precaution/Fall precaution. Supportive care. Continue present care management. Nutritional Asmnt/Malnutr-PDOC - Dietary Evaluation Malnutrition Findings (Please click <Entered> for more info): Nutritional Asmnt/Malnutrition Start: 12/23/19 11: 33 Text: Status: Complete Freq: Protocol: Document 12/23/19 11:49 NEERAJ (Rec: 12/23/19 12:08 NEERAJ LEEN- [id number]) Nutritional Asmnt/Malnutrition Patient General Information Nutritional Screening Moderate Risk Diagnosis Psychosis Pertinent Medical Hx/Surgical Hx Cardiac disease, diabetes, hypertension, COPD< seizure disorder, depression, anxiety Subjective Information Dietary currently providing average 1900 kcal, 80 gm protein per day; intake ~100% of meals. Per nursing notes, patient selectively mute. Patient asleep at time of visit. Current Diet Order/ Nutrition Support Cardiac Patient / S.O Not Indicated Pertinent Medications Maalox, MOM, Theragran Pertinent Labs (12/19) Cholesterol 203 Nutritional Hx/Data Height 1.7 m Height (Calculated Centimeters) 170.2 Current Weight (lbs) 68.039 kg Weight (Calculated Kilograms) 68.0 Weight (Calculated Grams) 08409.9 [place] Body Weight 148 % [place] Body Weight 101 Body Mass Index (BMI) 23.5 Recent Weight Change No Weight Status Approriate GI Symptoms GI Symptoms None Last BM 12/20 x 1 Difficult in: None Food Allergies No Cultural/Ethnic/Scientology Belief none indicated Usual diet at home unknown Skin Integrity/Comment: Zac 19, dryness Current %PO Good (75-100%) Estimated Nutritional Goals BEE in Kcals: Using Current wt Calories/Kcals/Kg 25-30 kcal/kg using CBW68.1kg Kcals Calculated ~5898-5912 kcal/day Protein: Using Current wt Protein g/kgm/kg Protein Calculated ~70 gm/day Fluid: ml ~7058-0811 ml/day 1 ml/kcal Nutritional Problem No current Nutrition Prob Problem No nutrition diagnosis at this time Intervention/Recommendation Comments 1. Continue cardiac diet as tolerated by patient ( Cholesterol 203) Expected Outcomes/Goals Expected Outcomes/Goals Oral intake >75% of meals, weight stable, nutrition related labs WNL F/U LR 12/29-
--- NOTE | 2020-01-02 22:28 | Progress Notes ---
DATE: 01/02/2020 SUBJECTIVE: Case was discussed with staff of the patient, reviewed records. The patient continues to be internally preoccupied. Continues to have poor insight, easily agitated. He tolerated increase in Zyprexa with no side effects, no sedation, no nausea, no extrapyramidal symptoms. He still has, however, some drooling. He is on Cogentin and he is unable to make safe plan for self-care. We will continue outpatient group therapy, milieu therapy, and adjust medication as needed. JOB# [id number]
--- NOTE | 2020-01-03 11:15 | Discharge Summary ---
DATE OF DISCHARGE: 01/02/[address] oL. IDENTIFYING INFORMATION: The patient is a 69-year-old male. HISTORY OF PRESENT ILLNESS: The patient came from [facility]. He was not making sense, striking at staff, aggressive, belligerent. He could not control his behavior, aggressive toward women, especially when Dr. Lo talked to him, he was mumbling. Unfortunately, he could not understand much of what he was saying. He knows his name. I don't know if he knows where he is or why he is here. . COURSE IN THE HOSPITAL: The patient was seen first by Dr. Lo and he was on amitriptyline 25 mg twice a day, Cogentin 2 mg twice a day, clonidine, Depakote 750 mg at bedtime, lisinopril, magnesium, multivitamin and Zyprexa, which I increased to 20 mg at bedtime and 10 mg daily, oxcarbazepine. The patient progressively got slightly better; however, continues to be a poor historian, sometimes mumbling, sometimes aggressive. However, the patient developed COVID-19 and had to be transferred to a medical facility. CONDITION ON DISCHARGE: The patient needs help with ADLs. The patient does not function well socially. FINAL DIAGNOSES: Bipolar disorder with psychosis, possible dementia. MEDICAL DIAGNOSIS: COVID-19, deferred to the medical doctor. The patient went to a medical facility. The patient will follow up with the psychiatrist, primary care physician and therapist. EXPECTED OUTCOME: Stable if the patient improves with follow with the above. JOB# [id number] [facility]
== END 2020-01-02 16:30 | disposition short-term general hospital (02) | DRG 885 ==
LOC: GERO 14:45
PROVIDERS: ADMIT Psychiatry & Neurology Psychiatry; ATTEND Psychiatry & Neurology Psychiatry
DX: F25.0 Schizoaffective disorder, bipolar type (principal); U07.1 COVID-19; F03.90 Unspecified dementia, unspecified severity, without behavioral disturbance, psychotic disturbance, mood disturbance, and anxiety; F41.9 Anxiety disorder, unspecified; F32.9 Major depressive disorder, single episode, unspecified; I10 Essential (primary) hypertension; E11.9 Type 2 diabetes mellitus without complications; G40.909 Epilepsy, unspecified, not intractable, without status epilepticus; J44.9 Chronic obstructive pulmonary disease, unspecified
CPT/HCPCS: 36415-UA; 80061-TC; 83036-90; G0410; J7051; U0003-CS; Z7610